=== PATIENT | female | born 1940 | race Caucasian/White ===

== ENCOUNTER 2021-03-11 13:45 | Emergency (ER) | payer MEDICARE, SELFPAY ==
--- NOTE | ~2021-03-11 | US_ITS ---
EXAMINATION: US VENOUS ULTRASOUND WITH DOPPLER LOWER EXTREMITY, LEFT CLINICAL INFORMATION: Chest pain COMPARISON: None TECHNIQUE: Ultrasound of the deep veins is performed from the hip to the calf with compression sonography and color and pulse Doppler assessment. Spectral analysis with color-flow imaging is performed. FINDINGS: There is normal venous compression and respiratory variation and augmented flow. The visualized common femoral vein, superficial femoral vein, profunda femoral vein, popliteal vein, and the trifurcation region shows no evidence of deep venous thrombosis. There is no significant popliteal fossa cyst. If the patient's symptoms persist, followup ultrasound in 5 days 7 days might be of value to exclude proximal propagation from a non-visualized calf vein. US/US venous duplex LE LT IMPRESSION: No DVT demonstrated in the left lower extremity.
--- NOTE | ~2021-03-11 | XR_ITS ---
EXAMINATION: XR KNEE, LEFT CLINICAL INFORMATION: Left knee pain. COMPARISON: None TECHNIQUE: Four views of the left knee. FINDINGS: There is mild loss of medial compartment joint space. The lateral and the patellofemoral compartment joint space is normal. No visible acute fracture, dislocation or subluxation seen. The soft tissues are normal. XR/XR knee LT 4V IMPRESSION: Early degenerative changes medial compartment left knee. No visible acute fracture or dislocation seen.
[2021-03-11 13:49] VITALS: BP 151/76; PULSE 74; RESP 18; TEMP 36.7; O2SAT 98; BMI 23.2
[2021-03-11 16:05] VITALS: BP 149/69; PULSE 66; RESP 18; TEMP 36.8; O2SAT 95
--- NOTE | 2021-03-11 18:16 | ED.GENADULT ---
HPI - General Adult General Chief complaint: Extremity Injury, Lower Stated complaint: leg pain and numbness Time Seen by Provider: 03/11/21 16:15 History of Present Illness HPI narrative: Patient complains of left calf and left knee pain which began last night most of the knee pain is posterior knee, there is no injury there is no shortness of breath no fever, no chest pain Related Data Previous Rx's Medication Instructions Recorded acetaminophen-codeine 1 tab PO Q6H PRN #10 tab 03/11/21 Allergies Allergy/AdvReac Type Severity Reaction Status Date / Time No Known Allergies Allergy Verified 03/11/21 13:53 [No Known Allergies*] Review of Systems Review of Systems: Positive for posterior left knee and calf pain No fever no chills no dizziness no fainting no chest pain no shortness of breath no cough no abdominal pain no skin rash no numbness weakness or tingling Yes all other systems are reviewed and are negative [facility] Past Medical History Source: nursing notes reviewed Medical History (Updated 03/12/21 @ 00:01 by Julia Quiñones) No known health problems Social History Social History Advance Directives: No Advance Directives Information Provided: Yes Physical Exam Vital Signs: Vital Signs: Last Vital Signs Temp 98.2 F 03/11/21 16:05 Pulse 66 03/11/21 16:05 Resp 18 03/11/21 16:05 BP 149/69 H 03/11/21 16:05 Pulse Ox 95 03/11/21 16:05 Body Mass Index 23.2 General appearance no acute distress Head is normocephalic atraumatic The neck is supple The chest is clear to auscultation bilateral with full symmetric equal breath sounds no adventitious sounds The chest wall is nontender there is no evidence of pleuritic pain with breathing The heart no murmur auscultated The abdomen is soft nontender Extremities the left knee has both anterior and posterior tenderness There is tenderness without swelling of the left calf There is no redness there is no warmth there is no wound there is no evidence of skin infection in the left leg It is neurovascular intact distal Other extremities normal Skin no rash Neuro no focal motor or sensory deficit Course Course Course Narrative: Left leg ultrasound did not demonstrate any DVT X-ray of the left knee did demonstrate some osteoarthritis Patient remains stable and comfortable throughout visit and is advised to follow with primary doctor in 1 week if pain persists as she may need repeat ultrasound and can return to the ER any time if any problems Discharge Plan Discharge Clinical Impression: Osteoarthritis of left knee, Left leg pain Patient Disposition: Home, Self-Care Additional Instructions: Ultrasound did not show any blood clot Her physical exam showed good pulse and good circulation in the left leg, there was no wound, no evidence of skin infection, no evidence of superficial phlebitis now If pain continues you may need a repeat ultrasound in a week to 10 days so follow with her doctor Return to the ER any time for any changed or worse condition or any concerns Prescriptions: New acetaminophen-codeine 300-60 mg tablet 1 tab PO Q6H PRN (Reason: pain) Qty: 10 RF: 0 Interventions: ED Discharge Assessment Last Done: 03/11/21 18:43 Discharge Date/Time: 03/11/21 18:44
== END 2021-03-11 18:44 | disposition home or self-care (01) ==
PROVIDERS: Emergency Provider Internal Medicine; PCP Internal Medicine
DX: M17.12 Unilateral primary osteoarthritis, left knee (principal); M25.562 Pain in left knee; R60.0 Localized edema; Z79.899 Other long term (current) drug therapy
CPT/HCPCS: 73564; 93971; 99284

== ENCOUNTER 2022-12-15 12:56 | Outpatient (REF) | payer MEDICARE, SELFPAY ==
[2022-12-15 17:21] LABS: Urine Cytology See Pathology rpt
== END 2022-12-15 12:57 | disposition home or self-care (01) ==
LOC: HO.LAB 12:56
PROVIDERS: PCP Internal Medicine; Visit Provider Nurse Practitioner Family
DX: R31.29 Other microscopic hematuria (principal); F17.210 Nicotine dependence, cigarettes, uncomplicated
CPT/HCPCS: 88112; 99202

== ENCOUNTER 2022-12-20 11:21 | Outpatient (REF) | payer MEDICARE, SELFPAY ==
[2022-12-20 12:39] LABS: Blood Urea Nitrogen 25 mg/dL (9-16); Estimated Glomerular Filt Rate 57
== END 2022-12-20 11:22 | disposition home or self-care (01) ==
LOC: HO.LAB 11:21
PROVIDERS: PCP Internal Medicine; Visit Provider Nurse Practitioner Family
DX: R31.29 Other microscopic hematuria (principal)
CPT/HCPCS: 36415; 82565; 84520

== ENCOUNTER 2023-01-06 10:55 | Outpatient (REF) | payer MEDICARE, SELFPAY ==
--- NOTE | ~2023-01-06 | CT_ITS ---
EXAMINATION: CT ABDOMEN AND PELVIS WITHOUT AND WITH CONTRAST CLINICAL INFORMATION: Microscopic hematuria. COMPARISON: None TECHNIQUE: Noncontrast CT of the abdomen and pelvis is performed followed by split bolus contrast-enhanced images using 85 mL Omnipaque 350 contrast.?Postcontrast imaging is performed during the combined nephrogram and excretion phase. Sagittal and coronal reformatted images were obtained on the technologist's workstation for both the precontrast and postcontrast phases. This CT examination was performed using dose optimization techniques as appropriate, variously including the following: *Automated exposure control *Adjustment of mA and/or kV according to patient size (this includes techniques or standardized protocols for targeted exams where dose is matched to indication/reason for exam; i.e. extremities or head) *Use of iterative reconstruction technique DLP: 578 mGy-cm FINDINGS: LUNG BASES: The visualized lung bases are unremarkable. LIVER, GALLBLADDER, AND BILIARY TREE: The liver is enlarged in size, normal in shape, and attenuation. Scattered punctate hypodensities seen in the right hepatic lobe, probable cysts. No focal hepatic lesion or biliary ductal dilatation is present. The gallbladder is unremarkable with no evidence of radiopaque gallstones, gallbladder wall thickening, or obvious pericholecystic inflammatory changes. PANCREAS: Unremarkable. SPLEEN: Unremarkable. ADRENAL GLANDS: Unremarkable. KIDNEYS AND URETERS: On precontrast CT, there are no radiopaque renal calculi. Post contrast, there are symmetrical cortical nephrograms with slight lobulation. There is a small 5 mm and and less cyst in the upper pole of the right kidney cortex. No additional cyst is seen. There is no enhancing renal mass. There is a small cortical defect lower pole lateral cortex of the left kidney. Left kidney measures 9.2 cm in length and right kidney measures 9.9 cm in length. There is good opacification of the bilateral kidney pelves without intraluminal filling defect. The ureters are not optimally opacified. BLADDER: Bladder is partially distended. There are no radiopaque calculi or bladder wall thickening. GASTROINTESTINAL TRACT: A large amount of stool in the colon without significant distention. The small bowel loops are normal caliber. Appendix is not seen with certainty. Cecum lies in the right pelvis. ABDOMINAL WALL: No significant hernia is appreciated. LYMPH NODES: Normal. VASCULAR: There is atherosclerotic calcification of the abdominal aorta without aneurysmal dilatation. PELVIC VISCERA: The uterus is atrophic. No adnexal mass is seen. OSSEUS STRUCTURES: There are degenerative disc changes throughout the lumbar spine. No aggressive lytic or sclerotic process is seen. There is mild ventral spondylosis. CT/CT urogram IMPRESSION: No radiopaque renal calculi. There are small right renal cortical cysts. No enhancing renal mass or hydronephrosis. Small cortical defect lateral lower pole of the left kidney. Moderate to significant constipation.
[2023-01-06] MEDS: iohexoL 350 MG/ML 100 ML INFUS..BTL IV (12:30)
== END 2023-01-06 10:56 | disposition home or self-care (01) ==
LOC: HO.CT 10:55
PROVIDERS: PCP Internal Medicine; Visit Provider Nurse Practitioner Family
DX: R31.29 Other microscopic hematuria (principal)
CPT/HCPCS: 74178; Q9967

== ENCOUNTER → 2023-01-28 14:11 | Outpatient (BNVA) | payer MEDICARE, SELFPAY | PROVIDERS: PCP Internal Medicine; Visit Provider Urology | DX: R31.29 Other microscopic hematuria (principal) | CPT/HCPCS: 52000; 99212 ==

== ENCOUNTER 2023-08-08 11:20 | Emergency (ER) | payer MEDICARE, SELFPAY ==
--- NOTE | ~2023-08-08 | XR_ITS ---
EXAMINATION: XR CHEST CLINICAL INFORMATION: Cough, rib pain. COMPARISON: X-ray 09/15/2017. TECHNIQUE: 2 views of the chest were obtained. FINDINGS: Stable cardiomediastinal silhouette. No pleural effusion. There is bronchial wall thickening and interstitial prominence in bilateral lower lungs, with some associated hazy opacities. This may reflect inflammatory or infectious process. No dense consolidation is seen. No pneumothorax. Multilevel degenerative changes in the spine. No acute displaced rib fracture is identified. XR/XR chest 2V IMPRESSION: Bronchial wall thickening and interstitial prominence with hazy opacities in bilateral lower lungs, may reflect infectious inflammatory process. No dense consolidation is seen. Consider followup imaging to ensure resolution.
--- NOTE | 2023-08-08 11:23 | ED_ITS ---
HPI - General Adult General Chief complaint: Dyspnea Stated complaint: Diff breathing/Rib pain Time Seen by Provider: 08/08/23 11:27 Source: patient and family (granddaughter) Mode of arrival: ambulatory Limitations: no limitations History of Present Illness HPI narrative: cough for one week now with bilateral rib pain Onset (ago): week(s) Severity: mild Related Data Previous Rx's Medication Instructions Recorded gqxuajegviwgw-VK-[id number] 2.5 20 ml PO Q4H PRN cough #118 mL 08/08/23 mg-5 mg-50 mg/5 mL oral liquid (Robitussin Cough and Cold CF) Allergies Allergy/AdvReac Type Severity Reaction Status Date / Time No Known Allergies Allergy Verified 08/08/23 11:27 [No Known Allergies*] Review of Systems Review of Systems: Yes all other systems are reviewed and are negative Neurologic: Denies Sensory deficit (Neuro) [facility] Past Medical History Medical History Spinal stenosis Psoriasis Microscopic hematuria No known health problems Surgical History History of vein stripping Family History Family History Father Cardiovascular disease Mother Malignant neoplasm of colon Social History Social History Smoked in Last 30 Days: No Use of substances other than those prescribed or required for medical reasons: No Advance Directives: No Advance Directives Information Provided: Yes Physical Exam ED Vital Signs: Vital Signs - 24 hr 08/08/23 11:27 Temperature 97.9 F Pulse Rate 80 Respiratory Rate 18 Blood Pressure 143/72 H Pulse Oximetry 95 Oxygen Delivery Method Room Air BMI result Body Mass Index 21.0 Const General: healthy appearing Nutritional Appearance: average body habitus Orientation/consciousness: oriented to person and patient oriented x3 Limitations: no limitations HENMT Head: Yes normal to inspection Ears: external ears normal General nose exam: Normal external nose present Mouth: Normal oral and palatal mucosa present and oropharynx normal Throat: Yes posterior oropharynx normal Eyes General: appearance normal, both eyes and all related structures Neck Neck: Yes normal visual inspection Chest Chest palpation & inspection: normal inspection of the chest Resp Auscultation: clear to auscultation bilaterally Cardio Jugular venous distension: no JVD Rate: regular rate Rhythm: regular rhythm Heart sounds: S1 normal heart sound present and S2 normal heart sound present GI Inspection: Yes normal to inspection Palpation (GI): Soft to palpation, nontender and No hepatosplenomegaly present Auscultation: normal bowel sounds General: Yes no CVA tenderness Back/Spine/Pelvis Back: no CVA tenderness Skin General skin exam: no rashes or lesions noted Neuro General: oriented to person and patient oriented x3 Cranial nerves: Yes CN's II-XII intact bilaterally Motor exam (neuro): 5/5 motor strength present throughout Sensory Exam: No Sensory deficit (Neuro) Extrem General: Yes normal to inspection Psych Appearance: grossly normal Course Reevaluation(s) Reevaluation #1: smoking cessation: patient counseled for 5 minutes about smoking and how to stop Time: 11:43 Medical Decision Making Differential Diagnosis Differential Diagnoses: The differential diagnosis associated with the presentation includes (pneumonia, RSV, COVID, influenza, bronchitis were all considered) Admission/Observation Consideration of admission/observation: Escalation of care including admission/observation considered (upon arrival patient was considered for admission) Lab Data MDM Lab Attestation statement: I reviewed the patient's lab results. (notable for influenza positive) Labs: Lab Results 08/08/23 Range/Units 11:57 Influenza Type A (PCR) POSITIVE A (Negative) Influenza Type B (PCR) NEGATIVE (Negative) RSV RNA Qual (PCR) NEGATIVE (Negative) SARS-CoV-2 RNA (RT-PCR) NEGATIVE (Negative) Independent Interpretation I performed an independent interpretation of an: Plain X-Ray (question of right lower lobe infiltrate) Radiology Impression Discussion of test interpretation with radiology: I have reviewed the radiologist's reading. (and agree inflammatory process) Independent Historian Clinical information obtained from an independent historian. History obtained from or confirmed by: Other (family: granddaughter) Prescription Management I considered prescription management with: Antibiotic (considered but not evidence of pneumonia and patient has influenza) Chronic Conditions Patient?s care impacted by: Other (smoker and COPD) Discharge Plan Discharge Clinical Impression: Influenza A Patient Disposition: Home, Self-Care Instructions: Influenza (ED) Prescriptions: New Robitussin Cough and Cold CF 2.5-5-50 mg/5 mL liquid 20 ml PO Q4H PRN (Reason: cough) Qty: 118 0RF Referrals: Ronald Rendon MD [Primary Care Provider] -
[2023-08-08 11:27] VITALS: BP 143/72; PULSE 80; RESP 18; TEMP 36.6; O2SAT 95; BMI 21.0
--- NOTE | 2023-08-08 11:57 | PC.NURSE ---
pt a&o4, vss, data capture clerk applied - NSR, pt reports productive cough x 1 week, with headaches and increased fatigue. pt pending XR and covid swab.
[2023-08-08 12:41] LABS: Influenza A PCR POSITIVE (Negative); Influenza B PCR NEGATIVE (Negative); Resp Syncy Virus RNA Qual PCR NEGATIVE (Negative); SARS COV2 PCR INHOUSE NEGATIVE (Negative)
[2023-08-08 14:36] VITALS: BP 114/57; PULSE 76; RESP 18; O2SAT 95
== END 2023-08-08 14:35 | disposition home or self-care (01) ==
PROVIDERS: Emergency Provider Emergency Medicine; PCP Internal Medicine
DX: J10.1 Influenza due to other identified influenza virus with other respiratory manifestations (principal); R06.02 Shortness of breath; R07.81 Pleurodynia; Z20.822 Contact with and (suspected) exposure to COVID-19; Z20.828 Contact with and (suspected) exposure to other viral communicable diseases
CPT/HCPCS: 0241U; 71046; 99283; 99284

== ENCOUNTER 2023-08-24 10:27 | Outpatient (REF) | payer MEDICARE, SELFPAY ==
--- NOTE | ~2023-08-24 | XR_ITS ---
EXAMINATION: XR LUMBOSACRAL SPINE WITH OBLIQUES CLINICAL INFORMATION: Anesthesia of skin COMPARISON: None available. TECHNIQUE: AP, lateral, flexion and extension views of the lumbar spine. 4 views. FINDINGS: Levoscoliosis of the lumbar spine. Advanced degenerative changes in the imaged lower thoracic spine. Bones are diffusely demineralized. Grade 1 retrolisthesis of L1 on L2 with flexion and extension. Advanced multilevel degenerative changes in the lumbar spine most severe at L3-L4, L4-L5 and L5-S1 with loss of disc space height and hypertrophic change. Severe facet arthritis in the mid to lower lumbar spine. XR/XR lumbar spine 4V min IMPRESSION: 1. Grade 1 retrolisthesis of L1 on L2 with flexion and extension. 2. Advanced multilevel degenerative changes in the lumbar spine most severe at L3-L4, L4-L5 and L5-S1. 3. Severe facet arthritis in the mid to lower lumbar spine.
== END 2023-08-24 10:28 | disposition home or self-care (01) ==
LOC: HO.HOSX 10:27
PROVIDERS: PCP Internal Medicine; Visit Provider Neurological Surgery
DX: R20.0 Anesthesia of skin (principal); M54.50 Low back pain, unspecified
CPT/HCPCS: 72110

== ENCOUNTER 2023-08-24 10:27 | Outpatient (AMB) | payer MEDICARE, SELFPAY ==
--- NOTE | 2023-08-24 10:57 | A.SPINEOV_ITS ---
Intake Intake Visit Reasons: low back pain Intake Note: Ms. Brown is here today c/o low back pain radiating down buttock into both legs. MRI done @ [facility]/brought disc. 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 Montaño, Thank you for referring Nevaeh to our office today. She is a pleasant 83-year-old female who comes in today with a chief complaint of bilateral leg and foot numbness. She also endorses some posterior thighs/buttocks numbness, accompanied by some numbness in her groin. She reports no urinary or fecal incontinence. She states that the symptoms began about 3 years ago in 2019 and have progressively worsened since then. She reports that she feels she does not have significant back pain at this time, and reports no issues walking or standing. She further reports that she is able to complete her grocery shopping without issue or reliance upon a shopping cart, and is able to walk to and from her car in the parking lot without any issues or need for a break. She also states she is able to complete all of her ADLs around her home including cooking cleaning. She reports that the only medication that she takes at this time is Tylenol. She does endorse that she has a cortisone injections in the past, and most recently missed an appointment with Dr. Mancera on 08/11/2023 for a cortisone injection of the lumbar spine. PMH: Osteoarthritis, carpal tunnel release on left side. Social hx: Patient does not smoke, reports no substance use. Medications: Tylenol. Allergies: NKDA. Physical exam: Strength is full and symmetric in the upper and lower extremities. Mobility remains intact. Patient is able to ambulate well, rises from seated position without difficulty. Bilateral numbness reported to palpation and fine touch of both feet and ankles. Decreased sensation reported over anterior tibialis to patella. Sensation returns in the lower portion of the thighs, and then decreases again in the posterior thighs/buttocks. Her lower extremities are hypo-reflexive with barely a 1+ Patellar and 1+ Achilles response elicited after numerous attempts. Upper extremity reflexes are 2+ intact. Babinski (-), Clonus (-). Imaging review: MRI of the lumbar spine completed on 06/08/2023 at [facility] shows significant spondylosis, with severe scoliosis, and moderate DDD most prominent at L3-4. Moderate spinal stenosis noted at L3-4, and significant spinal stenosis with central canal narrowing noted at L4-5. Impression: Nevaeh is a 83 year old female who comes in today with a chief complaint of bilateral lower extremity numbness most significant in her feet. She is currently followed by PMR who has completed lumbar spine cortisone injections in the past. She reports that she does not remember if these were helpful for her, but unfortunately she most recently missed her appointment on August 11 to have another round of injections completed. It is evident that she has significant complications in her lumbar spine including a severe curvature and diffuse degenerative changes, most significant at L5 4-5 where severe central canal stenosis can be noted. It does not seem that she has signs/symptoms that are classic for spinal stenosis at this time given the history she reports, which again was stated as little to no low back pain with little to no difficulty ambulating. For these reasons and for the pertinent physical exam findings of hypo-reflexia in her lower extremities we will be sending her for an EMG testing of her bilateral lower extremities to rule out polyneuropathy. She was also sent for an x-ray of the lumbar spine to evaluate for any instability and better view her scoliosis. We will follow up with her after her EMG is completed to discuss further interventions. A surgical decision/discussion will depend upon her results. Thank you for allowing us to care for your patient. The total time spent with this visit with this patient was 60 minutes reviewing history, physical exam, MRI imaging review, and implementation of treatment plan or further diagnostic testing. Ashwin Carr MD,PhD [facility] Orders: Orders NE electromyogram (EMG) Today R20.0 - Anesthesia of skin XR lumbar spine 4V min Today R20.0 - Anesthesia of skin Coding Level of Care Code New Pt Level 5 (20311) Diagnoses Bilateral leg numbness R20.0
== END 2023-08-24 11:45 | disposition home or self-care (01) ==
PROVIDERS: PCP Internal Medicine; Referring Provider Physical Medicine & Rehabilitation; Visit Provider Neurological Surgery
DX: R20.0 Anesthesia of skin (principal)
CPT/HCPCS: 99205

== ENCOUNTER 2023-09-07 10:04 | Outpatient (REF) | payer MEDICARE, SELFPAY ==
--- NOTE | 2023-09-07 10:07 | EMG_ITS ---
Please see scanned EMG / Nerve Conduction Report. MTDD
== END 2023-09-07 10:05 | disposition home or self-care (01) ==
LOC: HO.NEURO 10:04
PROVIDERS: PCP Internal Medicine; Visit Provider Physician Assistant
DX: R20.0 Anesthesia of skin (principal)
CPT/HCPCS: 95885; 95913

== ENCOUNTER 2023-11-10 12:59 | Outpatient (AMB) | payer MEDICARE, SELFPAY ==
[2023-11-10 13:10] VITALS: BP 90/60; PULSE 18; BMI 21.8
--- NOTE | 2023-11-10 13:10 | MHC.OFFVIS ---
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 Pt reports tingling on her both hands and feet. Bilateral hands numbness is not bad as her feet. It started about 2 months ago. Numbness of feet started about 4-5 years ago. She feels like plastic coating on her legs and feet, funny sensation. Denies pain but she occasionally uses tylenol or ibuprofen for back pain. 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 and had hx of varicose vein. Denies weakness on her legs but can lose balance once in a while. EMG report reviewed. 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 Normal EMG of the L5-S1 innervated muscle bilaterally. She had back problems. MRI reports multilevel degenerative changes of the lumbar spine. There is severe spinal canal stenois and severe right neural foramnimal naarowing at L4-5. Severe left neural foraminal narrowing at L5-S1. A disc protrusion at L1-L2 crowds the traversing right L2 nerve roots. She had neuro surgeon consultation and was told that no surgery needed. Has hx of osteoarthritis, psoriasis. She smokes 7 cigarets a day. [facility] Medical History Spinal stenosis Psoriasis Microscopic hematuria No known health problems Surgical History History of vein stripping Family History Father Cardiovascular disease Mother Malignant neoplasm of colon Physical Exam Vital Signs: Last Vital Signs Pulse 18 L 11/10/23 13:10 BP 90/60 11/10/23 13:10 BMI result Body Mass Index 21.8 Const General: cooperative Nutritional Appearance: average body habitus Orientation/consciousness: patient oriented x3 Neck Neck: Yes full ROM and Yes supple Resp Effort & Inspection: normal respiratory effort and able to speak in complete sentences Neuro General: patient oriented x3 Cranial nerves: Yes CN's II-XII intact bilaterally Cognition (Neuro): normal cognition Gait exam (Neuro): Antalgic gait present Motor exam (neuro): 5/5 motor strength present throughout and Pronator motor function not present Psych Appearance: grossly normal Affect: normal affect Attitude: cooperative Assessment & Plan Assessment & Plan (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 Advised patient reduce smoking. Pt plans to have consultation for smoke cessation. Orders: Orders Vitamin B12 and Folate 11/10/23 G60.8 - Other hereditary and idiopathic neuropathies Erythrocyte Sedimentation Rate 11/10/23 G60.8 - Other hereditary and idiopathic neuropathies HU Antibody 11/10/23 G60.8 - Other hereditary and idiopathic neuropathies Coding Level of Care Code New Pt Level 4 (75212) Diagnoses Sensory peripheral neuropathy G60.8 Bilateral leg numbness R20.0
== END 2023-11-10 13:56 | disposition home or self-care (01) ==
PROVIDERS: PCP Internal Medicine; Visit Provider Nurse Practitioner Family
DX: G60.8 Other hereditary and idiopathic neuropathies (principal); R20.0 Anesthesia of skin
CPT/HCPCS: 99204

== ENCOUNTER → 2023-11-10 12:59 | Outpatient (BNVA) | payer MEDICARE, SELFPAY | PROVIDERS: PCP Internal Medicine; Visit Provider Nurse Practitioner Family | DX: G60.8 Other hereditary and idiopathic neuropathies (principal); R20.0 Anesthesia of skin | CPT/HCPCS: 99202 ==

== ENCOUNTER 2024-01-30 14:20 | Outpatient (AMB) | payer MEDICARE, SELFPAY ==
--- NOTE | 2024-01-30 14:54 | A.OFFVIS_ITS ---
Intake Intake Visit Reasons: 1y follow up Intake Note: Patient presents for follow up microscopic hematuria Urology Medications: none Blood Thinner:none Operator Catalyst Concentration Required: No Accompanied by: Self / Same As Patient Allergies No Known Allergies [No Known Allergies*] Allergy (Verified 01/30/24 15:38) Medication List - Last Reconciled 01/30/24 by RAYMUNDO Sanchez estradiol 0.01%(0.1mg/gram) (Estrace) 1 g vaginal 3XW 30 days [id number] 2.5-5-50 mg/5 mL (Robitussin Cough and Cold CF) 20 mL PO Q4H PRN HPI HPI Comments History of Present Illness Details Nevaeh is a pleasant 82-year-old female patient of Dr. Rendon. She presents to the office today for a follow up of her microscopic hematuria in the setting of nicotine dependence. Of note, patient was seen approximately 1 year ago at which time she underwent an office cystoscopy that noted NAD however urethral caruncle noted. In discussion with the patient today she reports to be doing and feeling well. She denies any bothersome urinary issues or concerns. She does continue with nicotine dependence and reports to be smoking approximately 1 pack of cigarettes every 4-5 days. When asked she denies flank pain, hematuria, urinary urgency, urinary frequency, fever, and or chills. She does however report stress incontinence however very infrequent and is not bothersome to her. In office urinalysis results reviewed with the patient today. Microscopic hematuria noted. Would like to send for urine cytology however sample is not an adequate amount. She otherwise offers no other issues or concerns at this time. Microscopic Hematuria Smoking history 20 year pack per day - smokes 1/4 pack daily since age 16 [address] exposure is headrest Cytology - 12/30 NAD Imaging - 12/30 CT scan NAD PFSH Medical History Spinal stenosis Psoriasis Microscopic hematuria No known health problems Surgical History History of vein stripping Family History Father Cardiovascular disease Mother Malignant neoplasm of colon Review of Systems Const All systems reviewed & are unremarkable except as noted in HPI and below Reports as per HPI Eyes Reports no additional complaints ENT Reports no additional complaints Card Reports no additional complaints Resp Reports no additional complaints GI Reports no additional complaints Reports as per HPI Musc Reports no additional complaints Neuro Reports as per HPI Psych Reports no additional complaints Endo Reports no additional complaints Mayur/Lymph Reports no additional complaints Aller/Immun Reports no additional complaints Physical Exam Const General: cooperative, healthy appearing, comfortable, no acute distress, well developed, alert and awake Nutritional Appearance: thin Orientation/consciousness: patient oriented x3 Limitations: no limitations HEENT Head: Yes normal to inspection, Yes normocephalic and Yes atraumatic Eyes General: appearance normal, both eyes and all related structures Neck Neck: Yes normal visual inspection and Yes trachea midline Chest Chest palpation & inspection: normal inspection of the chest Resp Effort & Inspection: normal respiratory effort and able to speak in complete sentences Cardio Rate: regular rate GI Inspection: Yes normal to inspection General: Yes no CVA tenderness Back/Spine/Pelvis Back: no CVA tenderness Skin General skin exam: no rashes or lesions noted Neuro General: patient oriented x3 Psych Appearance: grossly normal and well kempt Mental Status: mental status grossly normal Speech and movement: Normal speech and movement present and Clear speech present Affect: normal affect Attitude: cooperative Thought process: Normal thought process present Thought content: Normal thought content present Insight: Fair insight present (Psych) Judgement: Fair judgement present (Psych) Results AMB Urinalysis, Automated UA Leukoctes 0 Paresh/uL Last Edit by [employer] on 01/30/24 15:13 UA Nitrite Negative Last Edit by [employer] on 01/30/24 15:13 UA Urobilinogen 0.2 mg/dL Last Edit by [employer] on 01/30/24 15:13 UA Protein 0 mg/dL Last Edit by [employer] on 01/30/24 15:13 UA pH 5.5 Last Edit by [employer] on 01/30/24 15:13 UA Blood 25 Henri/uL Last Edit by [employer] on 01/30/24 15:13 UA Specific [place] 1.015 Last Edit by [employer] on 01/30/24 15:13 UA Ketone Negative Last Edit by [employer] on 01/30/24 15:13 UA Bilirubin 0 mg/dL Last Edit by Lorenzo Marcelino on 01/30/24 15:13 UA Glucose 0 mg/dL Last Edit by Lorenzo Marcelino on 01/30/24 15:13 Results Reviewed Results Reviewed: Laboratory Last Values Urine pH (Auto) 5.5 01/30/24 14:59 Specific [place] (Auto) 1.015 01/30/24 14:59 Urine Protein (Auto) 0 mg/dL 01/30/24 14:59 Glucose (UA)(Auto) 0 mg/dL 01/30/24 14:59 Urine Ketones (Auto) Negative 01/30/24 14:59 Urine Blood (Auto) 25 Henri/uL 01/30/24 14:59 Urine Nitrite (Auto) Negative 01/30/24 14:59 Urine Bilirubin (Auto) 0 mg/dL 01/30/24 14:59 Urine Urobilinogen (Auto) 0.2 mg/dL 01/30/24 14:59 Leukocyte Esterase (Auto) 0 Paresh/uL 01/30/24 14:59 Assessment & Plan Assessment & Plan (1) Microscopic hematuria: Code(s): R31.29 - Other microscopic hematuria (2) Nicotine dependence: Code(s): F17.200 - Nicotine dependence, unspecified, uncomplicated Plan In office urinalysis results reviewed with the patient today; as noted above; unable to send urine for urine cytology as not a sufficient amount given in office of urine; will send urine cytology order to lab. Discussed at length potential causes for microscopic hematuria. Discussed, educated, and stressed the importance of limiting/quitting nicotine dependence for overall health and well-being. Start Estrace cream as discussed and prescribed. Patient currently denies any bothersome urinary issues or concerns. Discussed pelvic floor therapy in the setting of stress urinary incontinence; however patient declines at this time. Discussed, educated, and stressed the importance of drinking water daily. Follow-up in 6 months; or sooner with any issues, concerns, and or questions. Orders: Orders AMB Urinalysis Automated Today Z13.9 - Encounter for screening, unspecified Urine Cytology Today F17.200 - Nicotine dependence, unspecified, uncomplicated, R31.29 - Other microscopic hematuria Medications: New estradiol 0.01%(0.1mg/gram) (Estrace) apply a pea sized amount to the uretera three times per week. 1 g vaginal 3XW 42.5 grams 3RF 30 days Patient Instructions: The patient had an opportunity to ask questions regarding the treatment plan. All questions were answered. Physical exam, labs, and imaging were discussed and reviewed in detail. As well as risks, benefits, and discussion of treatment choices. No major barriers to understanding were identified. The patient expressed understanding and agreement with the above treatment plan. The patient was made aware they should contact our office by phone for worsening of their current condition, the appearance of new symptoms, or with any questions or concerns. Compliance is encouraged with any medications and follow up testing that is ordered. It is a privilege to be allowed the opportunity to participate in? your urological care.? Again, if you have any questions or concerns If you have any questions or concerns please do not hesitate to contact me. The office is [phone]. This note is constructed using voice recognition software. While every effort has been made to ensure accuracy potash flaker errors may have been included. Yours sincerely, RAYMUNDO Sanchez Coding Level of Care Code Est Pt Level 4 (71086) Diagnoses Microscopic hematuria R31.29 Nicotine dependence F17.200
== END 2024-01-30 15:27 | disposition home or self-care (01) ==
PROVIDERS: Visit Provider Nurse Practitioner Family
DX: R31.29 Other microscopic hematuria (principal); F17.200 Nicotine dependence, unspecified, uncomplicated; Z13.9 Encounter for screening, unspecified
CPT/HCPCS: 99214

== ENCOUNTER → 2024-01-30 14:20 | Outpatient (BNVA) | payer MEDICARE, SELFPAY | PROVIDERS: Visit Provider Nurse Practitioner Family | DX: R31.29 Other microscopic hematuria (principal); F17.210 Nicotine dependence, cigarettes, uncomplicated | CPT/HCPCS: 81003; 99212 ==

== ENCOUNTER 2024-02-03 13:03 | Outpatient (AMB) | payer MEDICARE, SELFPAY ==
--- NOTE | 2024-02-03 13:05 | MHC.OFFVIS ---
Intake Vital Signs 02/03/24 13:17 Height 5 ft 2 in Weight 121 lb 8 oz BMI 22.2 BP 115/72 Blood Pressure Location Lt brachial Position Sitting Pulse 79 Pulse Source Pulse Oximeter Pulse Oximetry (%) 97 Oxygen Delivery Method Room Air Intake Visit Reasons: follow up/ Confirmed Intake Note: Patient presents for f/U. Still feeling numbness on both feet and feels a sensation on both arms. Allergies No Known Allergies [No Known Allergies*] Allergy (Verified 02/03/24 13:13) HPI HPI Comments History of Present Illness Details 83 y/o female patient presents for follow up of neuropathy. Pt reports she started taking Nirvive with Alpha lipoic acid 300 mg in it, a week ago. She still has tingling on her both hands and feet. Bilateral hands numbness is not bad as her feet. Pt thinks tingling on her feet has been a little better. She tried gabapentin, and but it did not help for numbness but also caused groggy and felt drunk. She stopped smoking 2 weeks ago. 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 and had hx of varicose vein. Denies weakness on her legs but can lose balance once in a while. EMG report reviewed. 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 Normal EMG of the L5-S1 innervated muscle bilaterally. Lab result reviewed, B12, ESR result was WNL and Anti Hu was negative. She had back problems. MRI reports multilevel degenerative changes of the lumbar spine. There is severe spinal canal stenois and severe right neural foramnimal narrowing at L4-5. Severe left neural foraminal narrowing at L5-S1. A disc protrusion at L1-L2 crowds the traversing right L2 nerve roots. She had neuro surgeon consultation and was told that no surgery needed. Has hx of osteoarthritis, psoriasis. [facility] Medical History Spinal stenosis Psoriasis Microscopic hematuria No known health problems Surgical History History of vein stripping Family History Father Cardiovascular disease Mother Malignant neoplasm of colon Social History (Updated 02/03/24 @ 13:16 by Chanell Medrano CMA) Housing: Apartment Alcohol intake: former Comment: Ocassionally Patient Tobacco Use Status: Former Tobacco user Years Smoked: 20 Review of Systems Const All systems reviewed & are unremarkable except as noted in HPI and below Physical Exam Vital Signs: Last Vital Signs Pulse 79 02/03/24 13:17 BP 115/72 02/03/24 13:17 Pulse Ox 97 02/03/24 13:17 Oxygen Delivery Method Room Air 02/03/24 13:17 BMI result Body Mass Index 22.2 Const General: cooperative Nutritional Appearance: average body habitus Orientation/consciousness: patient oriented x3 Neck Neck: Yes full ROM and Yes supple Resp Effort & Inspection: normal respiratory effort and able to speak in complete sentences Neuro General: patient oriented x3 Cranial nerves: Yes CN's II-XII intact bilaterally Cognition (Neuro): normal cognition Gait exam (Neuro): Antalgic gait present Motor exam (neuro): 5/5 motor strength present throughout and Pronator motor function not present Psych Appearance: grossly normal Affect: normal affect Attitude: cooperative Assessment & Plan Assessment & Plan (1) Sensory peripheral neuropathy: Code(s): G60.8 - Other hereditary and idiopathic neuropathies (2) Bilateral leg numbness: Code(s): R20.0 - Anesthesia of skin Plan Advised patient to continue to take Nirvive with alpha lipoic acid 600 mg in it. Coding Level of Care Code Est Pt Level 3 (43770) Diagnoses Sensory peripheral neuropathy G60.8 Bilateral leg numbness R20.0
[2024-02-03 13:17] VITALS: BP 115/72; PULSE 79; O2SAT 97; BMI 22.2
== END 2024-02-03 13:33 | disposition home or self-care (01) ==
PROVIDERS: PCP Internal Medicine; Visit Provider Nurse Practitioner Family
DX: G60.8 Other hereditary and idiopathic neuropathies (principal); R20.0 Anesthesia of skin
CPT/HCPCS: 99213

== ENCOUNTER → 2024-02-03 13:03 | Outpatient (BNVA) | payer MEDICARE, SELFPAY | PROVIDERS: PCP Internal Medicine; Visit Provider Nurse Practitioner Family | DX: G60.8 Other hereditary and idiopathic neuropathies (principal); R20.0 Anesthesia of skin | CPT/HCPCS: 99212 ==

== ENCOUNTER 2024-07-30 10:31 | Outpatient (AMB) | payer MEDICARE, SELFPAY ==
--- NOTE | 2024-07-30 10:42 | A.OFFVIS_ITS ---
Intake Visit Reasons: 6m follow up Intake Note: Patient presents for follow up microscopic hematuria Urology Medications: Estrace Cream Blood Thinner:none Tieing Machine Operator Required: No Accompanied by: Self / Same As Patient Allergies No Known Allergies [No Known Allergies*] Allergy (Verified 07/30/24 11:03) Medication List - Last Reconciled 07/30/24 by RAYMUNDO Sanchez estradiol 0.01%(0.1mg/gram) (Estrace) 1 g vaginal 3XW 30 days HPI Comments Details: Nevaeh is a pleasant 84-year-old female patient of Dr. Rendon. She presents to the office today for a follow up of her microscopic hematuria in the setting of nicotine dependence. In discussion with the patient today she reports to be doing and feeling well. She reports since her last office visit here in January she has underwent back surgery with Dr. Quiroga and has been recovering well. She currently denies any bothersome urinary issues or concerns. Previous CT 01/27 noted no calculi. There are 5 mm and less cysts in the upper pole of the right kidney cortex. No additional cysts seen. There is no enhancing renal mass. The bladder is partially distended. There are no radiopaque calculi or bladder wall thickening. Patient underwent an office cystoscopy 01/[address] Goddard that noted NAD however urethral caruncle noted. She does continue with nicotine dependence and reports to be smoking approximately 1 pack of cigarettes every 4-5 days. When asked she denies flank pain, hematuria, urinary urgency, urinary frequency, fever, and or chills. She does however report stress incontinence however very infrequent and is not bothersome to her. In office urinalysis results reviewed with the patient today. Trace microscopic hematuria noted and proteinuria. When asked she reports compliance with Estrace cream as prescribed. She otherwise offers no other issues or concerns at this time. Microscopic Hematuria Smoking history 20 year pack per day - smokes 1/4 pack daily since age 16 [address] exposure is headrest Cytology - 12/30 NAD Imaging - 2/23 CT scan NAD [facility] Medical History Spinal stenosis Psoriasis Microscopic hematuria No known health problems Surgical History History of vein stripping Family History Father Cardiovascular disease Mother Malignant neoplasm of colon Social History Housing: Apartment Alcohol intake: former Comment: Ocassionally Patient Tobacco Use Status: Former Tobacco user Years Smoked: 20 Review of Systems Const All systems reviewed & are unremarkable except as noted in HPI and below Reports as per HPI Eyes Reports no additional complaints ENT Reports no additional complaints Card Reports no additional complaints Resp Reports no additional complaints GI Reports no additional complaints Reports as per HPI Musc Reports no additional complaints Neuro Reports as per HPI Psych Reports no additional complaints Endo Reports no additional complaints Mayur/Lymph Reports no additional complaints Aller/Immun Reports no additional complaints Physical Exam Const General: cooperative, healthy appearing, comfortable, no acute distress, well developed, alert and awake Nutritional Appearance: thin Orientation/consciousness: patient oriented x3 Limitations: no limitations HEENT Head: Yes normal to inspection, Yes normocephalic and Yes atraumatic Eyes General: appearance normal, both eyes and all related structures Neck Neck: Yes normal visual inspection and Yes trachea midline Chest Chest palpation & inspection: normal inspection of the chest Resp Effort & Inspection: normal respiratory effort and able to speak in complete sentences Cardio Rate: regular rate GI Inspection: Yes normal to inspection General: Yes no CVA tenderness Back/Spine/Pelvis Back: no CVA tenderness Skin General skin exam: no rashes or lesions noted Neuro General: patient oriented x3 Psych Appearance: grossly normal and well kempt Mental Status: mental status grossly normal Speech and movement: Normal speech and movement present and Clear speech present Affect: normal affect Attitude: cooperative Thought process: Normal thought process present Thought content: Normal thought content present Insight: Fair insight present (Psych) Judgement: Fair judgement present (Psych) Results AMB Urinalysis, Automated UA Leukoctes 0 Paresh/uL Last Edit by Lorenzo Marcelino on 07/30/24 10:54 UA Nitrite Last Edit by Lorenzo Marcelino on 07/30/24 10:54 UA Urobilinogen 0.2 mg/dL Last Edit by Lorenzo Lucylela on 07/30/24 10:54 UA Protein 100 mg/dL Last Edit by Lorenzo Marcelino on 07/30/24 10:54 UA pH 6.0 Last Edit by Lorenzo Marcelino on 07/30/24 10:54 UA Blood 10 Henri/uL Last Edit by Lorenzo Marcelino on 07/30/24 10:54 UA Specific [place] 1.015 Last Edit by Lorenzo Marcelino on 07/30/24 10:54 UA Ketone Last Edit by Lorenzo Marcelino on 07/30/24 10:54 UA Bilirubin 0 mg/dL Last Edit by Lorenzo Marcelino on 07/30/24 10:54 UA Glucose 0 mg/dL Last Edit by Lorenzo Marcelino on 07/30/24 10:54 Results Reviewed Results Reviewed: Laboratory Last Values Urine pH (Auto) 6.0 07/30/24 10:47 Specific [place] (Auto) 1.015 07/30/24 10:47 Urine Protein (Auto) 100 mg/dL 07/30/24 10:47 Glucose (UA)(Auto) 0 mg/dL 07/30/24 10:47 Urine Blood (Auto) 10 Henri/uL 07/30/24 10:47 Urine Bilirubin (Auto) 0 mg/dL 07/30/24 10:47 Urine Urobilinogen (Auto) 0.2 mg/dL 07/30/24 10:47 Leukocyte Esterase (Auto) 0 Paresh/uL 07/30/24 10:47 Assessment & Plan Assessment & Plan (1) Microscopic hematuria: Code(s): R31.29 - Other microscopic hematuria Category: Medical (2) Nicotine dependence: Code(s): F17.200 - Nicotine dependence, unspecified, uncomplicated Category: Medical (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 Discussed referral to Nephrology for 2+ proteinuria on urinalysis. Discussed at length potential causes for microscopic hematuria. Discussed repeat cystoscopy in the near future given patient with persistent microscopic hematuria in the setting of nicotine dependence. Discussed, educated, and stressed the importance of limiting/quitting nicotine dependence for overall health and well-being. Continue Estrace cream as discussed and prescribed. Patient currently denies any bothersome urinary issues or concerns. Discussed, educated, and stressed the importance of drinking water daily. Follow-up in 6 months; or sooner with any issues, concerns, and or questions. Orders: Orders AMB Urinalysis Automated Today Z13.9 - Encounter for screening, unspecified Referrals Nephrology Referral R80.9 - Proteinuria, unspecified Patient Instructions: The patient had an opportunity to ask questions regarding the treatment plan. All questions were answered. Physical exam, labs, and imaging were discussed and reviewed in detail. As well as risks, benefits, and discussion of treatment choices. No major barriers to understanding were identified. The patient expressed understanding and agreement with the above treatment plan. The patient was made aware they should contact our office by phone for worsening of their current condition, the appearance of new symptoms, or with any questions or concerns. Compliance is encouraged with any medications and follow up testing that is ordered. It is a privilege to be allowed the opportunity to participate in? your urological care.? Again, if you have any questions or concerns If you have any questions or concerns please do not hesitate to contact me. The office is [phone]. This note is constructed using voice recognition software. While every effort has been made to ensure accuracy toe former stitchdowns errors may have been included. 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
== END 2024-07-30 11:05 | disposition home or self-care (01) ==
LOC: HO.HUSH 10:31
PROVIDERS: PCP Internal Medicine; Visit Provider Nurse Practitioner Family
DX: R31.29 Other microscopic hematuria (principal); F17.200 Nicotine dependence, unspecified, uncomplicated; N36.2 Urethral caruncle; Z13.9 Encounter for screening, unspecified
CPT/HCPCS: 99213; G2211

== ENCOUNTER 2024-07-30 10:31 | Outpatient (REF) | payer MEDICARE, SELFPAY ==
[2024-07-30 17:04] LABS: Urine Cytology See Pathology rpt
== END 2024-07-30 10:32 | disposition home or self-care (01) ==
LOC: HO.LNP 10:31
PROVIDERS: PCP Internal Medicine; Visit Provider Nurse Practitioner Family
DX: R31.29 Other microscopic hematuria (principal); F17.200 Nicotine dependence, unspecified, uncomplicated; N36.2 Urethral caruncle; R80.9 Proteinuria, unspecified
CPT/HCPCS: 81003; 88112; 99212

== ENCOUNTER 2024-08-08 14:22 | Outpatient (AMB) | payer MEDICARE, SELFPAY ==
[2024-08-08 14:28] VITALS: BP 110/70; PULSE 102; O2SAT 99; BMI 21.6
--- NOTE | 2024-08-08 14:28 | HO.NEPHOV ---
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 She had dipstick positive proteinuria. Recent creatinine was 0.9 mg/dL back in 2022. She had microscopic hematuria. She underwent cystoscopy which was unremarkable. [facility] Medical History (Updated 07/30/24 @ 11:24 by LISETTE Sanchez) Spinal stenosis Psoriasis Microscopic hematuria No known health problems Surgical History (Updated 08/08/24 @ 14:32 by Marlena Murguia MA) History of back surgery History of vein stripping Family History Father Cardiovascular disease Mother Malignant neoplasm of colon Social History Housing: Apartment Alcohol intake: former Comment: Ocassionally Patient Tobacco Use Status: Former Tobacco user Years Smoked: 20 Review of Systems Const Denies fever(s) and Denies weight loss Card Denies chest pain Resp Denies cough and Denies hemoptysis GI Denies abdominal pain, Denies diarrhea and Denies nausea Musc Denies back pain Neuro Denies focal weakness Physical Exam Vital Signs: Last Vital Signs Pulse 102 H 08/08/24 14:28 BP 110/70 08/08/24 14:28 Pulse Ox 99 08/08/24 14:28 Oxygen Delivery Method Room Air 08/08/24 14:28 BMI result Body Mass Index 21.6 Awake. Comfortable. Neck is supple. Mucosa moist. Lungs air entry equal Heart S1-S2 heard no gallop. Abdomen soft. Extremities no edema. No involuntary movements. No myoclonus. Results Reviewed Nephrology Results: Sodium 139 mmol/L (135-145) 08/08/24 Potassium 4.4 mmol/L (3.3-5.1) 08/08/24 Chloride 104 mmol/L (96-108) 08/08/24 Carbon Dioxide 26 mmol/L (22-29) 08/08/24 BUN 26 mg/dL (9-16) H 08/08/24 Creatinine 1.12 mg/dL (0.5-1.4) 08/08/24 Calcium 9.7 mg/dL (8.4-10.2) 08/08/24 Urine Creatinine 255.28 mg/dL 08/08/24 Assessment & Plan Assessment & Plan (1) Proteinuria: Code(s): R80.9 - Proteinuria, unspecified Category: Medical Plan Pleasant 84-year-old woman with mild proteinuria by dipstick. She had microscopic hematuria and workup has been negative including cystoscopy. Renal function has been stable with a creatinine 0.8 mg/dL. First step is to quantify the proteinuria. If she has a significant proteinuria then we will proceed with further workup. In the meantime encouraged her to stay on low-sodium diet. And not added any medication at this time and reassured her. Orders: Orders Basic Metabolic Panel 08/08/24 R80.9 - Proteinuria, unspecified Total Protein Urine Random 08/08/24 R80.9 - Proteinuria, unspecified Creatinine Urine 08/08/24 R80.9 - Proteinuria, unspecified Coding Level of Care Code New Pt Level 4 (30942) Diagnoses Proteinuria R80.9
== END 2024-08-08 15:05 | disposition home or self-care (01) ==
LOC: HO.HKAM 14:22
PROVIDERS: PCP Internal Medicine; Visit Provider Internal Medicine Hypertension Specialist
DX: R80.9 Proteinuria, unspecified (principal)
CPT/HCPCS: 99204

== ENCOUNTER → 2024-08-08 14:22 | Outpatient (BNVA) | payer MEDICARE, SELFPAY | PROVIDERS: PCP Internal Medicine; Visit Provider Internal Medicine Hypertension Specialist ==

== ENCOUNTER 2024-08-08 14:59 | Outpatient (REF) | payer MEDICARE, SELFPAY ==
[2024-08-08 16:38] LABS: Anion Gap 13 (12-20); Blood Urea Nitrogen 26 mg/dL (9-16); Calcium 9.7 mg/dL (8.4-10.2); Carbon Dioxide 26 mmol/L (22-29); Chloride 104 mmol/L (96-108); Estimated Glomerular Filt Rate 46; Glucose Random 133 mg/dL (60-115); Potassium 4.4 mmol/L (3.3-5.1); Sodium 139 mmol/L (135-145)
[2024-08-08 16:57] LABS: Folate 11.2 ng/mL (> or = 4.0); Vitamin B12 1013 pg/mL (200-900)
[2024-08-08 17:11] LABS: Erythrocyte Sedimentation Rate 18 MM/HR (0-20)
[2024-08-08 17:27] LABS: Creatinine Urine 255.28 mg/dL; Total Protein Urine Random 75 mg/dL (<12)
[2024-08-14 22:59] LABS: Hu Antibody Screen, IFA Serum NEGATIVE (NEGATIVE)
== END 2024-08-08 15:00 | disposition home or self-care (01) ==
LOC: HO.HHCL 14:59
PROVIDERS: Referring Provider Nurse Practitioner Family; Visit Provider Internal Medicine Hypertension Specialist
DX: G60.8 Other hereditary and idiopathic neuropathies (principal); R80.9 Proteinuria, unspecified
CPT/HCPCS: 36415; 80048; 82570; 82607; 82746; 84156; 84181; 85652; 86255; 86256; 99202

== ENCOUNTER 2024-09-17 16:10 | Outpatient (AMB) | payer MEDICARE, SELFPAY ==
[2024-09-17 16:11] VITALS: BP 146/58; PULSE 89; O2SAT 96; BMI 21.8
--- NOTE | 2024-09-17 16:11 | HO.NEPHOV_ITS ---
Vital Signs 09/17/24 16:11 09/17/24 16:21 Height 5 ft 2 in Weight 119 lb BMI 21.8 BP 146/58 H 140/60 H Blood Pressure Location Lt brachial Lt brachial Position Sitting Sitting Pulse 89 Pulse Source Pulse Oximeter Pulse Oximetry (%) 96 Oxygen Delivery Method Room Air Intake Visit Reasons: Proteinuria/ LVM Medicine Tech Required: No Accompanied by: Self / Same As Patient Allergies No Known Allergies [No Known Allergies*] Allergy (Verified 09/17/24 16:13) Medication List - Last Reconciled 09/17/24 by Gurinder Danielson MD acetaminophen (Tylenol) 325 mg PO QID PRN estradiol 0.01%(0.1mg/gram) (Estrace) 1 g vaginal 3XW 30 days ibuprofen 200 mg PO Q6H PRN HPI Comments Details: Nevaeh is a pleasant 84-year-old woman who has been referred for evaluation proteinuria. She had dipstick positive proteinuria. Recent creatinine was 0.9 mg/dL back in 2022. She had microscopic hematuria. She underwent cystoscopy which was unremarkable. 09/17/24 [facility] Medical History (Updated 07/30/24 @ 11:24 by Christelle Anguiano [facility]) Spinal stenosis Psoriasis Microscopic hematuria No known health problems Surgical History History of back surgery History of vein stripping Family History Father Cardiovascular disease Mother Malignant neoplasm of colon Social History Housing: Apartment Alcohol intake: former Comment: Ocassionally Patient Tobacco Use Status: Former Tobacco user Years Smoked: 20 Physical Exam Vital Signs: Last Vital Signs Pulse 89 09/17/24 16:11 BP 146/58 H 09/17/24 16:11 Pulse Ox 96 09/17/24 16:11 Oxygen Delivery Method Room Air 09/17/24 16:11 BMI result Body Mass Index 21.8 Results Reviewed Nephrology Results: Sodium 139 mmol/L (135-145) 08/08/24 Potassium 4.4 mmol/L (3.3-5.1) 08/08/24 Chloride 104 mmol/L (96-108) 08/08/24 Carbon Dioxide 26 mmol/L (22-29) 08/08/24 BUN 26 mg/dL (9-16) H 08/08/24 Creatinine 1.12 mg/dL (0.5-1.4) 08/08/24 Calcium 9.7 mg/dL (8.4-10.2) 08/08/24 Urine Creatinine 255.28 mg/dL 08/08/24 Assessment & Plan Assessment & Plan (1) Proteinuria: Code(s): R80.9 - Proteinuria, unspecified Category: Medical Plan Pleasant 84-year-old woman with mild proteinuria by dipstick. She had microscopic hematuria and workup has been negative including cystoscopy. Renal function has been stable with a creatinine 0.8 mg/dL. Urien Pro: Cr 290 Non nephrotic Will recheck in 3 months with serologies meantime encouraged her to stay on low-sodium diet. Have not added any medication at this time Orders: Orders Creatinine 3 Months R80.9 - Proteinuria, unspecified Total Protein Urine Random 3 Months R80.9 - Proteinuria, unspecified Creatinine Urine 3 Months R80.9 - Proteinuria, unspecified Blood Urea Nitrogen 3 Months R80.9 - Proteinuria, unspecified UA and rflx microscopic 3 Months R80.9 - Proteinuria, unspecified Protein Electrophoresis, Serum 3 Months R80.9 - Proteinuria, unspecified Complement C3 3 Months R80.9 - Proteinuria, unspecified Complement C4 3 Months R80.9 - Proteinuria, unspecified SHON Reflex Titer and Pattern 3 Months R80.9 - Proteinuria, unspecified ANCA Vasculitides 3 Months R80.9 - Proteinuria, unspecified Coding Level of Care Code Est Pt Level 4 (12342) Diagnoses Proteinuria R80.9
[2024-09-17 16:21] VITALS: BP 140/60
== END 2024-09-17 16:27 | disposition home or self-care (01) ==
PROVIDERS: PCP Internal Medicine; Visit Provider Internal Medicine Hypertension Specialist
DX: R80.9 Proteinuria, unspecified (principal)
CPT/HCPCS: 99214

== ENCOUNTER → 2024-09-17 16:10 | Outpatient (BNVA) | payer MEDICARE, SELFPAY | PROVIDERS: PCP Internal Medicine; Visit Provider Internal Medicine Hypertension Specialist | DX: R80.9 Proteinuria, unspecified (principal) | CPT/HCPCS: 99212 ==

== ENCOUNTER 2024-11-05 09:58 | Outpatient (AMB) | payer MEDICARE, SELFPAY ==
--- NOTE | 2024-11-05 10:04 | MHC.OFFVIS ---
Vital Signs 11/05/24 10:08 Height 5 ft 2 in Weight 117 lb BMI 21.4 BP 108/66 Blood Pressure Location Rt brachial Position Sitting Pulse 81 Pulse Source Pulse Oximeter Pulse Oximetry (%) 97 Oxygen Delivery Method Room Air Intake Visit Reasons: Neuropathy pain Intake Note: Pain today 0/10 Signal Timer Required: No Accompanied by: Self / Same As Patient Allergies No Known Allergies [No Known Allergies*] Allergy (Verified 11/05/24 10:08) HPI HPI Neuropathy pain: Details: Patient is a pleasant 84-year-old female with history of peripheral neuropathy, lumbar spinal stenosis status post back surgery (Dr. Quiroga, 04/2024), nicotine use disorder, varicose veins, carpal tunnel syndrome, history of left carpal tunnel syndrome release, presents today for initial evaluation of chronic neuropathy in both feet. Patient denies any recent trauma, injury, or falls. Patient reports no back pain since surgery for disc problem but reports persistent numbness and shooting pain in her feet that varies in intensity and is worse at night. She also reports bilateral hand pain with paresthesias. 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 Patient has tried different medications through her PCP such as pregabalin and gabapentin, which caused her adverse side effects and made her feel dizzy and drowsy. She is currently taking alpha lipoic acid, Tylenol, duloxetine, NSAIDs and [id number] Nervive without pain relief. Patient is interested to discuss topical 8% capsaicin applications for peripheral neuropathy in both feet. Patient is also exhibits signs of PVD with multiple varicosities and spider veins in her bilateral lower extremities and feet and reports she is scheduled to follow up with Vascular provider next month. Denies any fever or chills, rash, infection, footdrop, weakness, bladder or bowel dysfunction or saddle anesthesia. Location: Bilateral feet, also has numbness and tingling in her hands Duration: Chronic pain > 5 years Characteristics of symptom or complaint: Numbness, tingling, pins and needles,burning, aching, tiring, exhausting Aggravating or associated factors: Walking, sleep Relieving factors: Duloxetine, Tylenol, Ibuprofen, Nervive Treatment: PSSP pain management in the past, back surgery, oral medications [facility] Medical History (Updated 11/05/24 @ 18:21 by ADE Echevarria) Carpal tunnel syndrome Varicose veins of both lower extremities Sensory peripheral neuropathy Nicotine use disorder Current smoker Spinal stenosis Psoriasis Microscopic hematuria No known health problems Surgical History (Updated 11/05/24 @ 18:21 by ADE Echevarria) History of carpal tunnel release History of back surgery (~04/2024) History of vein stripping Family History Father Cardiovascular disease Mother Malignant neoplasm of colon Social History Housing: Apartment Alcohol intake: former Comment: Ocassionally Patient Tobacco Use Status: Former Tobacco user Years Smoked: 20 Review of Systems Const All systems reviewed & are unremarkable except as noted in HPI and below Physical Exam Vital Signs: Last Vital Signs Pulse 81 11/05/24 10:08 BP 108/66 11/05/24 10:08 Pulse Ox 97 11/05/24 10:08 Oxygen Delivery Method Room Air 11/05/24 10:08 BMI result Body Mass Index 21.4 General: Appears afebrile. Alert and oriented. Mood and affect appropriate. Follows and participates in conversation appropriately. Respiratory effort is unlabored. No cough. Able to transition from sit to stand unassisted. Ambulates with bilaterally normal heel strike and toe off. Back/Spine/Pelvis Cervical Spine: cervical ROM normal, No Cervical spine scars present and No Cervical spine tenderness Thoracic/Lumbar Spine: thoracic and lumbar spine normal to inspection, Thoracic/lumbar spine scar(s), Lasegue's sign negative, straight leg raise negative bilaterally, thoraco-lumbar ROM limited, No thoracic spinal tenderness and No lumbar spinal tenderness Extrem Other: There is a decreased sensation over the soles of the feet and great toes. Reports numbness, burning, tingling in both feet, worse at night time. No breaks in the skin. No soft tissue swelling or warmth. +2 pedal pulses bilaterally. Discoloration and chronic venous changes of both LE and feet with multiple varicosities. Normal capillary refill. No calf tenderness. Mild non-pitting left pedal edema. Results Reviewed Results Reviewed: XR LUMBOSACRAL SPINE WITH OBLIQUES 08/24/23 CLINICAL INFORMATION: Anesthesia of skin FINDINGS: Levoscoliosis of the lumbar spine. Advanced degenerative changes in the imaged lower thoracic spine. Bones are diffusely demineralized. Grade 1 retrolisthesis of L1 on L2 with flexion and extension. Advanced multilevel degenerative changes in the lumbar spine most severe at L3-L4, L4-L5 and L5-S1 with loss of disc space height and hypertrophic change. Severe facet arthritis in the mid to lower lumbar spine. IMPRESSION: 1. Grade 1 retrolisthesis of L1 on L2 with flexion and extension. 2. Advanced multilevel degenerative changes in the lumbar spine most severe at L3-L4, L4-L5 and L5-S1. 3. Severe facet arthritis in the mid to lower lumbar spine. 09/07/23 EMG study Lumbar spine MRI review per [facility] 08/24/23: MRI of the lumbar spine completed on 06/08/2023 at [place] shows significant spondylosis, with severe scoliosis, and moderate DDD most prominent at L3-4. Moderate spinal stenosis noted at L3-4, and significant spinal stenosis with central canal narrowing noted at L4-5. Assessment & Plan Assessment & Plan (1) Bilateral leg numbness: Code(s): R20.0 - Anesthesia of skin Category: Medical (2) Sensory peripheral neuropathy: Code(s): G60.8 - Other hereditary and idiopathic neuropathies Category: Medical Plan Discussed risks and benefits of different treatment options including topical 8% capsaicin application and spinal cord stimulation. Patient is not interested for treatments for post laminectomy syndrome at this time or SCS trial as she reports significant back pain relief since surgery in April. Will try to arrange topical 8% capsaicin application for bilateral foot pain as the next step once we have confirmed availability. All questions and concerns have been answered and the patient agreed with the plan. Follow up as needed. Coding Level of Care Code New Pt Level 4 (28555) Complex EM visit Add On G2211 Diagnoses Bilateral leg numbness R20.0 Sensory peripheral neuropathy G60.8
[2024-11-05 10:08] VITALS: BP 108/66; PULSE 81; O2SAT 97; BMI 21.4
== END 2024-11-05 11:10 | disposition home or self-care (01) ==
PROVIDERS: PCP Internal Medicine; Referring Provider Physician Assistant Medical; Visit Provider Nurse Practitioner Family
DX: R20.0 Anesthesia of skin (principal); G60.8 Other hereditary and idiopathic neuropathies
CPT/HCPCS: 99204; G2211

== ENCOUNTER → 2024-11-05 09:58 | Outpatient (BNVA) | payer MEDICARE, SELFPAY | PROVIDERS: PCP Internal Medicine; Referring Provider Physician Assistant Medical; Visit Provider Nurse Practitioner Family | DX: G60.8 Other hereditary and idiopathic neuropathies (principal); M48.061 Spinal stenosis, lumbar region without neurogenic claudication; R20.0 Anesthesia of skin | CPT/HCPCS: 99202 ==

== ENCOUNTER 2024-12-11 09:53 | Outpatient (AMB) | payer MEDICARE, SELFPAY ==
[2024-12-11 09:53] VITALS: BP 140/58; PULSE 99; O2SAT 95; BMI 20.3
--- NOTE | 2024-12-11 09:53 | HO.NEPHOV ---
Vital Signs 12/11/24 09:53 Height 5 ft 2 in Weight 111 lb BMI 20.3 BP 140/58 H Blood Pressure Location Lt brachial Position Sitting Pulse 99 Pulse Source Pulse Oximeter Pulse Oximetry (%) 95 Oxygen Delivery Method Room Air Intake Visit Reasons: Proteinuria/ LVM Reservation Agent Required: No Accompanied by: Self / Same As Patient Allergies No Known Allergies [No Known Allergies*] Allergy (Verified 12/11/24 09:55) Medication List - Last Reconciled 12/11/24 by Gurinder Danielson MD acetaminophen (Tylenol) 325 mg PO QID PRN duloxetine mg PO DAILY estradiol 0.01%(0.1mg/gram) (Estrace) 1 g vaginal 3XW 30 days ibuprofen 200 mg PO Q6H PRN lidocaine HCl-menthol 4-1 % (Nervive Pain Relieving) ea topical HPI Comments Details: Nevaeh is a pleasant 84-year-old woman who has been referred for evaluation proteinuria. She had dipstick positive proteinuria. Recent creatinine was 0.9 mg/dL back in 2022. She had microscopic hematuria. She underwent cystoscopy which was unremarkable. Seen by Vascular [facility] Medical History (Updated 11/05/24 @ 18:21 by ADE Echevarria) Carpal tunnel syndrome Varicose veins of both lower extremities Sensory peripheral neuropathy Nicotine use disorder Current smoker Spinal stenosis Psoriasis Microscopic hematuria No known health problems Surgical History History of carpal tunnel release History of back surgery (~04/2024) History of vein stripping Family History Father Cardiovascular disease Mother Malignant neoplasm of colon Social History Housing: Apartment Alcohol intake: former Comment: Ocassionally Patient Tobacco Use Status: Former Tobacco user Years Smoked: 20 Physical Exam Vital Signs: Last Vital Signs Pulse 99 12/11/24 09:53 BP 140/58 H 12/11/24 09:53 Pulse Ox 95 12/11/24 09:53 Oxygen Delivery Method Room Air 12/11/24 09:53 BMI result Body Mass Index 20.3 Comfortable Neck supple no JVD. Lungs entry equal no rales. Heart S1-S2 heard no gallop or rub. Abdomen soft nontender. Neuro alert awake oriented. No asterixis. Extremities no edema. Results Reviewed Nephrology Results: Sodium 139 mmol/L (135-145) 08/08/24 Potassium 4.4 mmol/L (3.3-5.1) 08/08/24 Chloride 104 mmol/L (96-108) 08/08/24 Carbon Dioxide 26 mmol/L (22-29) 08/08/24 BUN 26 mg/dL (9-16) H 08/08/24 Creatinine 1.12 mg/dL (0.5-1.4) 08/08/24 Calcium 9.7 mg/dL (8.4-10.2) 08/08/24 Urine Creatinine 255.28 mg/dL 08/08/24 Assessment & Plan Assessment & Plan (1) Proteinuria: Code(s): R80.9 - Proteinuria, unspecified Category: Medical Plan Pleasant 84-year-old woman with mild proteinuria by dipstick. She had microscopic hematuria and workup has been negative including cystoscopy. Renal function creatinine was 1.12 and up from 0.8 mg/dL. REcheck today Urien Pro: Cr 290 Repeat Urine PRo: Cr was 0.61 Non nephrotic Will recheck today with serologies meantime encouraged her to stay on low-sodium diet. Have not added any medication at this time Orders: Orders Basic Metabolic Panel Today R80.9 - Proteinuria, unspecified Neutrophil Cytoplasma Ab Today R80.9 - Proteinuria, unspecified Complement C3 Today R80.9 - Proteinuria, unspecified Protein Electrophoresis, Serum Today R80.9 - Proteinuria, unspecified SHON Reflex Titer and Pattern Today R80.9 - Proteinuria, unspecified Creatinine Urine Today R80.9 - Proteinuria, unspecified Total Protein Urine Random Today R80.9 - Proteinuria, unspecified UA and rflx microscopic Today R80.9 - Proteinuria, unspecified Complement C4 Today R80.9 - Proteinuria, unspecified Coding Level of Care Code Est Pt Level 4 (64313) Diagnoses Proteinuria R80.9
== END 2024-12-11 10:10 | disposition home or self-care (01) ==
PROVIDERS: PCP Internal Medicine; Visit Provider Internal Medicine Hypertension Specialist
DX: R80.9 Proteinuria, unspecified (principal)
CPT/HCPCS: 99214

== ENCOUNTER 2024-12-11 10:18 | Outpatient (REF) | payer MEDICARE, SELFPAY ==
--- OUTSIDE RECORDS SUMMARY | 2024-12-11 11:01 | XMS_ITS | Encounter Summary ---
Author Organization [facility] Address [address] [place] [address] Care Team Providers Care Practice Manager Name Role Phone Angelika Giraldo MD Primary Care Provider [phone] Ronald Rendon MD Primary Care Provider Unavail able Encounter Details Date Type Department Care Team Description 09/28/2017 Hospital Medical Records [address] [place] [address] Abstract, Provider Social History Tobacco Use Types Packs/Day Years Used Date Smoking Tobacco: Former Cigarettes 0.5 52 0 11/07/1964 - 09/14/2017 Smokeless Tobacco: Never Comments:4 cigs a day Alcohol Use Standard Drinks/Week Comments Yes 0 (1 standard drink = 0.6 oz pur e alcohol) 2 drinks per mo Sex Assigned at Date Recorded Not on file documented as of this encounter Plan of Treatment Not on file documented as of this encounter Visit Diagnoses Not on filedocumented in this encounter Care Teams Practice Manager Relationship Specialty Start Date End Date Angelika Giraldo MD [address] [place] [address] PCP - General 02/05/1993 05/18/22 Ronald Rendon MD [address] [place] [address] PCP - General Internal Medicine 05/19/22 documented as of this encounter
--- OUTSIDE RECORDS SUMMARY | 2024-12-11 11:01 | XMS_ITS | Encounter Summary ---
Author Organization [facility] Address [address] [place] [address] Care Team Providers Care Russian Language Professor Name Role Phone Angelika Giraldo MD Primary Care Provider Ronald Rendon MD Primary Care Provider Unavail able Encounter Details Date Type Department Care Team Description 10/16/2018 Supervisor Park Workers Report Medical Records [address] [place] [address] Parveen Robertson MD Social History Tobacco Use Types Packs/Day Years Used Date Smoking Tobacco: Former Cigarettes 0.5 52 Q uit: 09/14/2017 Smokeless Tobacco: Never Comments:Started @ age 17; 8 / 2 daily Alcohol Use Standard Drinks/Week Comments Yes 0 (1 standard drink = 0.6 oz pur e alcohol) 2 drinks per mo Sex Assigned at Date Recorded Not on file documented as of this encounter Plan of Treatment Not on file documented as of this encounter Visit Diagnoses Not on filedocumented in this encounter Care Teams Russian Language Professor Relationship Specialty Start Date End Date Angelika Giraldo MD [address] [place] [address] PCP - General 02/05/1993 05/18/22 Ronald Rendon MD [address] [place] [address] PCP - General Internal Medicine 05/19/22 documented as of this encounter
--- OUTSIDE RECORDS SUMMARY | 2024-12-11 11:01 | XMS_ITS | Encounter Summary ---
Author Organization [facility] Address [address] [place] [address] Care Team Providers Care Ham Smoker Name Role Phone Angelika Giraldo MD Primary Care Provider [phone] Ronald Rendon MD Primary Care Provider Unavail able Encounter Details Date Type Department Care Team Description 03/15/2017 Fishing Reel Assembler Report Medical Records [address] [place], [place] [id number] Mumtaz Martin MD Social History Tobacco Use Types Packs/Day Years Used Date Smoking Tobacco: Some Days Cigarettes 0.5 52 Last attempted to quit: 11/18/2011 Smokeless Tobacco: Never Comments:Started @ age 17 Alcohol Use Standard Drinks/Week Comments Yes 0 (1 standard drink = 0.6 oz pur e alcohol) 2 drinks per mo Sex Assigned at Date Recorded Not on file documented as of this encounter Plan of Treatment Not on file documented as of this encounter Visit Diagnoses Not on filedocumented in this encounter Care Teams Ham Smoker Relationship Specialty Start Date End Date Angelika Giraldo MD [address] [place], [place] [phone] PCP - General 02/05/1993 05/18/22 Ronald Rendon MD [address] [place] [id number] PCP - General Internal Medicine 05/19/22 documented as of this encounter
--- OUTSIDE RECORDS SUMMARY | 2024-12-11 11:01 | XMS_ITS | Encounter Summary ---
Author Organization [facility] Address [address] [place] [address] Care Team Providers Care Cdl Truck Driver Name Role Phone Angelika Giraldo MD Primary Care Provider [phone] Ronald Rendon MD Primary Care Provider Unavail able Encounter Details Date Type Department Care Team Description 05/31/2016 Salesperson Toy Trains [employer] Accessories Report Medical Records [address] [place] [address] Anna Wells Social History Tobacco Use Types Packs/Day Years [...] on filedocumented in this encounter Care Teams Cdl Truck Driver Relationship Specialty Start Date End Date Angelika Giraldo MD [address] [place], [place] [phone] PCP - General 02/05/1993 05/18/22 Ronald Rendon MD [address] [place] [address] PCP - General Internal Medicine 05/19/22 documented as of this encounter
--- OUTSIDE RECORDS SUMMARY | 2024-12-11 11:01 | XMS_ITS | Encounter Summary ---
Author Organization [facility] Address [address] [place] [address] Care Team Providers Care Virtualization Engineer Name Role Phone Angelika Giraldo MD Primary Care Provider [phone] Ronald Rendon MD Primary Care Provider Unavail able Encounter Details Date Type Department Care Team Description 09/28/2017 Hospital Medical Records [address] [place] [id number] Swapnil Riggs MD Social History Tobacco Use Types Packs/Day [...] on filedocumented in this encounter Care Teams Virtualization Engineer Relationship Specialty Start Date End Date Angelika Giraldo MD [address] [place], [place] [phone] PCP - General 02/05/1993 05/18/22 Ronald Rendon MD [address] [place] [id number] PCP - General Internal Medicine 05/19/22 documented as of this encounter
--- OUTSIDE RECORDS SUMMARY | 2024-12-11 11:01 | XMS_ITS | Clinical Summary ---
Author Organization [facility] Address [address] [place] [address] Care Team Providers Care Radio Electronics Technician Name Role Phone Ronald Rendon MD Primary Care Provider Unavail able Allergies Active Allergy Reactions Severity Noted Date Comments Nitrofurantoin Rash/Dermatitis 10/22/2018 Medications Medication Sig Dispensed Refills Start Date End Date Status ARTIFICIAL TEAR SOLUTION OP apply 1 Drop to the eye 4 times daily. 0 Active Fluticasone Propionate (FLONASE NA) 2 Sprays by Nasal route daily. 0 Active ibuprofen (ADVIL,MOTRIN) 600 MG tablet Take 1 Tab by mouth every 6 hours as needed for Pain. Take 600 mg by mouth every 6 hours as needed. 60 Tab 0 07/10/2020 Active atorvastatin (LIPITOR) 20 MG tablet Take 1 Tab by mouth daily. 90 Tab 3 07/10/2020 Active Active Problems Problem Noted Date CKD (chronic kidney disease) stage 3, GF R 30-59 ml/min 07/15/2020 Emphysema/COPD 03/31/2018 Overview: Sep 2017: Chest CT scan ([facility]) Hyperlipidemia 09/26/2017 Positive SHON (antinuclear antibody) 08/07 Overview: 1:1600 05/17 Osteopenia 06/30/2011 Overview: 12/24 T score spine -0.8 hip -1.9 FRAX score 13% 10 year fracture risk Family history of malignant neoplasm of gastrointestinal tract 12/26/2006 Overview: Mother with colon cancer, diagnosis at age older than 60. Maternal uncles x 2 with colon cancer, diagnosis at age older than 60. Negative flexible sigmoidoscopy 3.11.96. Negative/incomplete colonoscopy 01.22.02. Negative barium enema x-ray February,. Diminutive hyperplastic sigmoid colon polyp at complete colonoscopy 12.26.06. Negative colonoscopy 01/03/2012, no colon cancer screening needed for 10 years. DIVERTICULOSIS OF COLON 12/26/2006 Overview: Incidental finding at colonoscopy 12/26/2006. Benign neoplasm of colon 12/26/2006 Overview: diminutive sigmoid colon polyp at colonoscopy 12.26.06. VARICOSE VEINS 08/31/2006 Hematuria 08/25/2006 Overview: microscopic, negative evaluation 07/09 IMO update L3-L4 DISC HERNIATION 08/25/2006 Spinal stenosis, lumbar region, without neurogenic claudication 08/25/2006 Carpal tunnel syndrome 08/25/2006 PSORIASIS 08/25/2006 Overview: Onset 1970. Humira 40mg every 4 weeks started 02/15 ONYCHOMYCOSIS 08/25/2006 Immunizations Name Administration Dates Next Due Influenza (> 6 Months) 08/27/2015,08/16/2011, Influenza vaccine high dose age 65 and over 06/2019 Pneumoccoccal(Adult) Polysaccharide PPSV23 08/31 Pneumococcal Conjugate PCV-13 08/27/2015 TD (STATE SUPPLIED FOR ADULTS AND CHILDREN) 09/08,10/02/2007,02/05/1998 Family History Medical History Relation Name Comments [place] Father 57 Cataract Maternal Grandfather Cancer of the Colon Mother angina, CHF, arthritis Cancer of the Colon Other 2 2 uncles Blindness Negative Hx Glaucoma Negative Hx Macular Degeneration Negative Hx Strabismus Negative Hx Relation Name Status Comments Father Maternal Grandfather Mother Other 1 m cousin 70s Alive Other 2 Social History Tobacco Use Types Packs/Day Years Used Date Smoking Tobacco: Former Cigarettes 0.5 52 0 11/07/1964 - 09/14/2017 Smokeless Tobacco: Never Comments:4 cigs a day Alcohol Use Standard Drinks/Week Comments Yes 0 (1 standard drink = 0.6 oz pur e alcohol) 2 drinks per mo Sex Assigned at Date Recorded Not on file Last Filed Vital Signs Vital Sign Reading Time Taken Comments Blood Pressure 128/74 07/10/2020 2:08 PM EDT Pulse 72 07/10/2020 2:08 PM EDT Temperature 36.7 ??C (98 ??F) 07/10/2020 2:08 PM EDT Respiratory Rate 12 07/10/2020 2:08 PM EDT Oxygen Saturation 99% 10/18/2019 3:51 PM EST RA Inhaled Oxygen Concentration - - Weight 56.3 kg (124 lb 3.2 oz) 07/10/2020 2:08 P M EDT Height 157.5 cm (5' 2 ) 07/10/2020 2:08 PM EDT Body Mass Index 22.72 07/10/2020 2:08 PM EDT Plan of Treatment Health Maintenance Due Date Last Done Comments Covid-19 Vaccine (#1) 1940 SHINGLES VACCINE (1 of 2) 1991 BONE DENSITY SCREENING 01/03/2019 01/03/2017, 2010 MAMMOGRAM 05/19/2023 05/19/2022, 05/07, 05/16/2018, Additional history exists INFLUENZA (#1) 2024 09/14/2019, 08/08, 08/16/2011, Additional history exists BMI CHECK/ADVISE 11/07/2024 05/05/2019 CHOLESTEROL SCREENING 07/10/2025 07/10/2020 , 10/11/2018, 04/06/2018, Additional history exists DTAP/TDAP/TD (3 - Td or Tdap) 09/26/2027, 12/01/2016 (Refused), 10/02/2007, Additional history exists PNEUMOCOCCAL VACCINE Completed 09/15/2017, 08/27/20 15, 08/31/2006 Guarantor Name Account Type Relation to Patient Date of Phone Billing Address Nevaeh Brown Personal/Family Self [address] [place] [id number] Nevaeh Brown Vision Self 1940 [address] [place] [id number] Nevaeh Brown Individual Self 1940 [address] [place] [id number] Care Teams Radio Electronics Technician Relationship Specialty Start Date End Date Ronald Rendon MD PCP - General Internal Medicine 05/19/22
--- OUTSIDE RECORDS SUMMARY | 2024-12-11 11:01 | XMS_ITS | Data Portability ---
Author Organization [place] - [facility], Allergy Address [address] [address] Assessment Encounter Date Assessment Date Assessment LastModified by Organization Details LastModified Time 08/16/2024 08/16/2024 CL & CK - both aids working fine.. May be getting new IPhone - instructions given for relinking aids to phone. annual appt made [email or web address] Not available 08/16/2024 10:24:54 Plan of Treatment Reminders Order Date Submit Date Provider Last Modified By Organization Details Last Modified Time Details Appointments LOAIZA Initial Fitting 2024 10:00A Marii CHIU, JOSE Not available Not available Not available Lab None recorded . Referral None recorded . Procedures None recorded . Surgeries None recorded . Imaging None recorded . Medication Orders None recorded . Patient TargetsNo targets recorded. Patient InstructionsNo instructions recorded. Reason for Referral None Reported. Problems Name Problem SNOMED Code Status Onset Date Resolution Date Notes Provider Name and Address Organization Details Recorded Time Mixed conductiv e and sensorine ural hearing loss of right ear 46386833420 105 Active 2016 Mixed conductiv e and sensorine ural hearing loss, unilatera l, right ear with restricte d hearing on the contralat eral side; Note: Date Diagnosed : 03/15/2017 10:55 AM (H90.A31) Not Available [facility] 4 02:15:04 Disorder of right Eustachia n tube 07111354136 53156 Active 2020 Other specified disorders of Eustachia n tube, right ear; Note: Date Diagnosed : 02/23/2021 10:24 AM (H69.81) Not Available [facility] 4 02:15:38 Sensorine ural hearing loss in left ear 56297291757 109 Active 2016 Sensorine ural hearing loss, unilatera l, left ear, with restricte d hearing on the contralat eral side; Note: Date Diagnosed : 03/15/2017 10:55 AM (H90.A22) Not Available [facility] 4 02:14:56 Impacted cerumen of bilateral ears 53985503784 06862 Active 2016 Impacted cerumen, bilateral ; Note: Date Diagnosed : 03/15/2017 10:16 AM (H61.23) Not Available [facility] 4 02:12:59 Impacted cerumen in right ear 73288804241 12992 Active 2020 Impacted cerumen, right ear; Note: Date Diagnosed : 02/23/2021 10:24 AM (H61.21) Not Available [facility] 4 02:15:18 Mixed conductiv e and sensorine ural hearing loss, bilateral 254933496 Active 2023 Mixed conductiv e and sensorine ural hearing loss, bilateral ; Note: Date Diagnosed : 12/02/2023 3:49 PM (H90.6) Not Available [facility] 4 02:14:56 Sensorine ural hearing loss of bilateral ears 622661656 Active 2023 YESSICA CHIU, [facility] [address], [address] , [facility] - [facility] 4 10:17:08 Problem Notes None recorded. Medical Equipment None Reported. Medications Name Sig Start Date Stop Date Status Note LastModified by Organization Details LastModified Time fluticason e propionate 50 mcg/actuat ion nasal spray,susp ension 2 puff into both nostrils 2016 active Medicatio n ID: [id number] Du ration Value: 30 Prescrib ed By Name: Mumtaz Martin MD Brand Name: fluticaso ne Send Method: E-Prescri bed Subs Allowed: subs OK Medica tionGener icName: fluticaso ne Not Available Not Available Not Available Vitals None Recorded Social History None recorded. Functional Status None recorded. Mental Status None recorded. Family History Nothing Reported. Medical History No medical history recorded. Gynecological HistoryNo gynecological history recorded. Obstetrics History GPAL:G 0 P 0 0 0 0 Past Encounters Encounter ID Performer Location Encounter Start Date Encounter Closed Date Diagnosis/Indication Diagnosis SNOMED-CT Code Diagnosis ICD10 Code Diagnosis Note [id number] JOSE PORTER [place] 100 [facility], [place] [address] [place] [address] 08/16/2024 10:01:04 08/20/2024 07:15:39 Sensorineural hearing loss of bilateral ears [id number] H90.3 Health Concerns Section Related Observation LastModified by Organization Detai ls LastModified Time None Recorded Concern Status LastModified by Organization Details LastModified Time None Recorded Advance Directives Directive None Recorded Payers None recorded. Notes Date Note Type Note Provider Name and Address Organization Details Recorded Time 08/16/2024 text/html Patient has [employer] benefit thru [facility]. She prefers staying with us. She as a known bilateral SNHL She is currently wearing ImageVision 330 Smart JOSE FRANCISCO hearing aids dispensed 02/09/2024 JOSE PORTER 100 [facility],[place] [address], [place], [address], [facility] - [facility] 08/16/2024 10:25:17 OBGyn Episode No OBEpisode recorded.
--- OUTSIDE RECORDS SUMMARY | 2024-12-11 11:01 | XMS_ITS | Encounter Summary ---
Author Organization [facility] Address [address] [place] [address] Care Team Providers Care Mathematics Faculty Member Name Role Phone Angelika Giraldo MD Primary Care Provider [phone] Ronald Rendon MD Primary Care Provider Unavail able Encounter Details Date Type Department Care Team Description 09/16/2017 Hospital Medical Records [address] [place] [address] Abstract, Provider Social History Tobacco Use Types [...] on filedocumented in this encounter Care Teams Mathematics Faculty Member Relationship Specialty Start Date End Date Angelika Giraldo MD [address] [place] [address] PCP - General 02/05/1993 05/18/22 Ronald Rendon MD [address] [place] [address] PCP - General Internal Medicine 05/19/22 documented as of this encounter
--- OUTSIDE RECORDS SUMMARY | 2024-12-11 11:01 | XMS_ITS | Encounter Summary ---
Author Organization [facility] Address [address] [place] [address] Care Team Providers Care Materials Tech Name Role Phone Angelika Giraldo MD Primary Care Provider [phone] Ronald Rendon MD Primary Care Provider Unavail able Reason for Visit * Reason Onset Date Comments Annual Wellness Outreach 09/18/2021 Encounter Details Date Type Department Care Team Description 09/18/2021 Telephone Adult Medicine [address] [phone] Pardeep Black DO Annual Wellness Outreach Social History Tobacco Use Types Packs/Day Years Used Date Smoking Tobacco: Former Cigarettes 0.5 52 0 [birth year]/07/1964 - 09/14/2017 Smokeless Tobacco: Never Comments:4 cigs a day Alcohol Use Standard Drinks/Week Comments Yes 0 (1 standard drink = 0.6 oz pur e alcohol) 2 drinks per mo Sex Assigned at Date Recorded Not on file documented as of this encounter Miscellaneous Notes * Telephone Encounter - Jovana Montenegro - 09/18/2021 3:38 PM EST Ms. Brown was contacted by telephone. First attempt utr lvm documented in this encounter Plan of Treatment Not on file documented as of this encounter Visit Diagnoses Not on filedocumented in this encounter Care Teams Materials Tech Relationship Specialty Start Date End Date Angelika Giraldo MD [address] [place] [address] [phone] PCP - General 02/05/1993 05/18/22 Ronald Rendon MD [address] [place] [address] PCP - General Internal Medicine 05/19/22 documented as of this encounter
--- OUTSIDE RECORDS SUMMARY | 2024-12-11 11:01 | XMS_ITS | Encounter Summary ---
Author Organization [facility] Address [address] [place] [address] Care Team Providers Care [employer] Name Role Phone Angelika Giraldo MD Primary Care Provider [phone] Ronald Rendon MD Primary Care Provider Unavail able Encounter Details Date Type Department Care Team Description 09/15/2018 Fiction And Nonfiction Author Report Medical Records [address] [place] [id number] Kristen Woods Social History Tobacco Use Types Packs/Day Years Used Date Smoking Tobacco: Former Cigarettes 0.5 52 Q uit: 09/14/2017 Smokeless Tobacco: Never Comments:Started @ age 17; 8 /9 2 daily Alcohol Use Standard Drinks/Week Comments Yes 0 (1 standard drink = 0.6 oz pur e alcohol) 2 drinks per mo Sex Assigned at Date Recorded Not on file documented as of this encounter Plan of Treatment Not on file documented as of this encounter Visit Diagnoses Not on filedocumented in this encounter Care Teams [employer] Relationship Specialty Start Date End Date Angelika Giraldo MD [address] [place] [address] [phone] PCP - General 02/05/1993 05/18/22 Ronald Rendon MD [address] [place] [address] PCP - General Internal Medicine 05/19/22 documented as of this encounter
--- OUTSIDE RECORDS SUMMARY | 2024-12-11 11:01 | XMS_ITS | Encounter Summary ---
Author Organization [facility] Address [address] [place] [address] Care Team Providers Care Patient Care Coordinator Name Role Phone Angelika Giraldo MD Primary Care Provider [phone] Ronald Rendon MD Primary Care Provider Unavail able Reason for Visit * Reason Onset Date Comments Provider Call Back 05/11/2017 Encounter Details Date Type Department Care Team Description 05/11/2017 Telephone Physiatry - [facility] [address] [place], [place] [phone] Emilee Mondragon MD [address] [place] [address] [place] [address] Provider Call Back Social History Tobacco Use Types Packs/Day Years [...] encounter Miscellaneous Notes * Telephone Encounter - Ariana Meyer M.A. - 05/11/2017 2:10 PM EDT Left A message reminding patient of Appt on 06/15. Also relayed Dr Rodriguez message of continuing the Home Exercises to help with discomfort * Telephone Encounter - Emilee Mondragon MD - 05/11/2017 2:09 PM EDT Continue with plan of home exercises. I think she already has a scheduled fup to reevaluate and to see if we can reappeal the MRI. thanks * Telephone Encounter - Ariana Meyer M.A. - 05/11/2017 1:57 PM EDT Please review and advise. Patient still has discomfort. Last visit on 05/06/17 Note from that visit below ASSESSMENT/PLAN: 1. She has some tenderness over right GT. We can try a GT injection today and hope that would give her some relief. She will call our office next week for updates. ?? 2. I still think we should rule out a right L3-4 disc herniation. Insurance wants a 6 week conservative management. Patient cannot afford the copay for PT but is very willing to do physician guided home exercises. I gave her a list to do at home, will illustrations. Will reevaluate in 6 weeks. ? PROCEDURE PERFORMED: right Trochanteric Bursa injection ?? PROCEDURE: Procedure explained to patient. Consent obtained. Patient lies on unaffected side with lower leg flexed and upper leg extended. Tender area over the right greater trochanter is identified and marked. Area is cleansed with betadine solution. Using a 27 gauge needle, 3 ml of 2% lidocaine is injected, with the needle perpendicular to center of tender area. Then, using a spinal needle, 40mg Kenalog is injected perpendicularly at center of tender area and slightly touching bone of greatertrochanter. The patient tolerated the procedure well without complications. Assessment and plan discussed with patient. All questions were answered thoroughly. Follow up 6 weeks. ?? Emilee Mondragon MD ?? * Telephone Encounter - Cordell Hallman - 05/11/2017 1:31 PM EDT Patient called saying, she was told to call to inform Dr Helm how is she after an injection. Patient saying injection did help a little, but she still has a uncomfortable filling in her back and thigh. documented in this encounter Plan of Treatment Not on file documented as of this encounter Visit Diagnoses Not on filedocumented in this encounter Care Teams Patient Care Coordinator Relationship Specialty Start Date End Date Angelika Giraldo MD [address] [place] [id number] PCP - General 02/05/1993 05/18/22 Ronald Rendon MD [address] [place] [id number] PCP - General Internal Medicine 05/19/22 documented as of this encounter
--- OUTSIDE RECORDS SUMMARY | 2024-12-11 11:01 | XMS_ITS | Encounter Summary ---
Author Organization [facility] Address [address] [place] [address] Care Team Providers Care Fruit Packer Name Role Phone Angelika Giraldo MD Primary Care Provider [phone] Ronald Rendon MD Primary Care Provider Unavail able Encounter Details Date Type Department Care Team Description 05/29/2019 Telephone Adult [address] [phone] Qian Estrada PA-C Social History Tobacco Use Types Packs/Day Years [...] on filedocumented in this encounter Care Teams Fruit Packer Relationship Specialty Start Date End Date Angelika Giraldo MD [address] [place] [address] [phone] PCP - General 02/05/1993 05/18/22 Ronald Rendon MD [address] [place] [id number] PCP - General Internal Medicine 05/19/22 documented as of this encounter
[2024-12-11 11:58] LABS: Appearance Urine Cloudy; Color Urine Yellow; Glucose Urine UA Negative (Negative); Leukocyte Esterase Urine Moderate (2+) (Negative); Nitrite Urine Negative (Negative); Specific Gravity - Urine 1.025 (1.005-1.025); UMIC TRIGGER UA YES; Urine Blood Negative (Negative); Urine Ketones Trace mg/dL (Negative); Urine Protein 300 (3+) mg/dL (Neg-Trace)
[2024-12-11 12:12] LABS: Bacteria Urine None Seen (None Seen)
[2024-12-11 12:25] LABS: Anion Gap 15 (12-20); Blood Urea Nitrogen 20 mg/dL (9-16); Calcium 9.9 mg/dL (8.4-10.2); Carbon Dioxide 24 mmol/L (22-29); Chloride 104 mmol/L (96-108); Estimated Glomerular Filt Rate 52; Glucose Random 107 mg/dL (60-115); Potassium 4.4 mmol/L (3.3-5.1); Sodium 139 mmol/L (135-145)
[2024-12-11 12:31] LABS: Creatinine Urine 188.09 mg/dL; Total Protein Urine Random 160 mg/dL (<12)
[2024-12-12 13:34] LABS: Complement C3 107 mg/dL
[2024-12-13 10:58] LABS: Prot Elec - Albumin 4.3 g/dL (3.8-4.8); Prot Elec - Alpha1 0.3 g/dL (0.2-0.3); Prot Elec - Alpha2 0.8 g/dL (0.5-0.9); Prot Elec - Beta 1 0.4 g/dL (0.4-0.6); Prot Elec - Beta 2 0.3 g/dL (0.2-0.5); Prot Elec - Total Protein 7.1 g/dL (6.1-8.1)
[2024-12-13 14:09] LABS: Anti Nuclear Antibody Screen NEGATIVE (NEGATIVE)
[2024-12-14 15:49] LABS: Neutrophil Cyto Ab Screen NEGATIVE (NEGATIVE)
== END 2024-12-11 10:19 | disposition home or self-care (01) ==
LOC: HO.10HDL 10:18
PROVIDERS: Visit Provider Internal Medicine Hypertension Specialist
DX: R80.9 Proteinuria, unspecified (principal)
CPT/HCPCS: 36415; 80048; 81001; 82570; 84156; 84165; 86036; 86038; 86160

== ENCOUNTER 2025-01-28 10:47 | Outpatient (REF) | payer MEDICARE, SELFPAY ==
[2025-01-28 17:01] LABS: Urine Cytology See Pathology rpt
== END 2025-01-28 10:48 | disposition home or self-care (01) ==
LOC: HO.LNP 10:47
PROVIDERS: PCP Internal Medicine; Visit Provider Nurse Practitioner Family
DX: N36.2 Urethral caruncle (principal); R31.29 Other microscopic hematuria; F17.200 Nicotine dependence, unspecified, uncomplicated; R89.6 Abnormal cytological findings in specimens from other organs, systems and tissues
CPT/HCPCS: 81003; 88112; 99212

== ENCOUNTER 2025-01-28 10:47 | Outpatient (AMB) | payer MEDICARE, SELFPAY ==
--- NOTE | 2025-01-28 10:49 | A.OFFVIS_ITS ---
Intake Visit Reasons: 6m follow up Intake Note: Patient presents for follow up microscopic hematuria Urology Medications: Estrace Cream Blood Thinner:none Director Dietetics Department Required: No Accompanied by: Self / Same As Patient Allergies No Known Allergies [No Known Allergies*] Allergy (Verified 01/28/25 11:24) Medication List - Last Reconciled 01/28/25 by ADE Sanchez-KALYANI acetaminophen (Tylenol) 325 mg PO QID PRN duloxetine mg PO DAILY estradiol 0.01%(0.1mg/gram) (Estrace) 1 g vaginal 3XW 30 days ibuprofen 200 mg PO Q6H PRN lidocaine HCl-menthol 4-1 % (Nervive Pain Relieving) ea topical HPI Comments Details: Nevaeh is a pleasant 84-year-old female patient of Dr. Rendon. She presents to the office today for a follow up of her microscopic hematuria in the setting of nicotine dependence. In discussion with the patient today she reports to be doing and feeling well. She denies having had any bothersome urinary issues or concerns since her last office visit here approximately 6 months ago. She does report episodes of stress incontinence however feels she is self managing. She reports having followed up with Nephrology for ongoing proteinuria. Previous workup has included CT 01/27 noted no calculi. There are 5 mm and less cysts in the upper pole of the right kidney cortex. No additional cysts seen. There is no enhancing renal mass. The bladder is partially distend ed. There are no radiopaque calculi or bladder wall thickening. Patient underwent an in office cystoscopy 01/[address] Goddard that noted NAD however urethral caruncle noted. She does continue with nicotine dependence and reports to be smoking approximately 1 pack of cigarettes every 4-7 days. When asked she denies flank pain, hematuria, urinary urgency, urinary frequency, fever, and or chills. In office urinalysis results reviewed with the patient today. 1+ microscopic hematuria noted and proteinuria. When asked she reports compliance with Estrace cream as prescribed. We discussed further workup to include repeat imaging as well as in office cystoscopy versus surveillance monitoring. Risks and benefits of these interventions were discussed. She otherwise offers no other issues or concerns at this time. Urine cytology: 12/30 Negative for high-grade urothelial carcinoma, 07/31 Rare atypical urothelial cells. 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 Nicotine use disorder Current smoker Spinal stenosis Psoriasis Microscopic hematuria No known health problems Surgical History History of carpal tunnel release History of back surgery (~04/2024) History of vein stripping Family History Father Cardiovascular disease Mother Malignant neoplasm of colon Social History Housing: Apartment Alcohol intake: former Comment: Ocassionally Patient Tobacco Use Status: Former Tobacco user Years Smoked: 20 Review of Systems Const All systems reviewed & are unremarkable except as noted in HPI and below Reports as per HPI Eyes Reports no additional complaints ENT Reports no additional complaints Card Reports no additional complaints Resp Reports no additional complaints GI Reports no additional complaints Reports as per HPI Musc Reports no additional complaints Neuro Reports as per HPI Psych Reports no additional complaints Endo Reports no additional complaints Mayur/Lymph Reports no additional complaints Aller/Immun Reports no additional complaints Physical Exam Const General: cooperative, healthy appearing, comfortable, no acute distress, well developed, alert and awake Nutritional Appearance: thin Orientation/consciousness: patient oriented x3 Limitations: no limitations HEENT Head: Yes normal to inspection, Yes normocephalic and Yes atraumatic Eyes General: appearance normal, both eyes and all related structures Neck Neck: Yes normal visual inspection and Yes trachea midline Chest Chest palpation & inspection: normal inspection of the chest Resp Effort & Inspection: normal respiratory effort and able to speak in complete sentences Cardio Rate: regular rate GI Inspection: Yes normal to inspection General: Yes no CVA tenderness Back/Spine/Pelvis Back: no CVA tenderness Skin General skin exam: no rashes or lesions noted Neuro General: patient oriented x3 Psych Appearance: grossly normal and well kempt Mental Status: mental status grossly normal Speech and movement: Normal speech and movement present and Clear speech present Affect: normal affect Attitude: cooperative Thought process: Normal thought process present Thought content: Normal thought content present Insight: Fair insight present (Psych) Judgement: Fair judgement present (Psych) Results AMB Urinalysis, Automated UA Leukoctes 70 Paresh/uL Last Edit by [employer] on 01/28/25 11:07 UA Nitrite Last Edit by [employer] on 01/28/25 11:07 UA Urobilinogen 0.2 mg/dL Last Edit by [employer] on 01/28/25 11:07 UA Protein 100 mg/dL Last Edit by [employer] on 01/28/25 11:07 UA pH 6.0 Last Edit by [employer] on 01/28/25 11:07 UA Blood 25 Henri/uL Last Edit by [employer] on 01/28/25 11:[address] 1.025 Last Edit by [employer] on 01/28/25 11:07 UA Ketone Negative Last Edit by [employer] on 01/28/25 11:07 UA Bilirubin 0 mg/dL Last Edit by [employer] on 01/28/25 11:07 UA Glucose 0 mg/dL Last Edit by [employer] on 01/28/25 11:07 Results Reviewed Results Reviewed: Laboratory Last Values Urine pH (Auto) 6.0 01/28/25 10:[address] (Auto) 1.025 01/28/25 10:50 Urine Protein (Auto) 100 mg/dL 01/28/25 10:50 Glucose (UA)(Auto) 0 mg/dL 01/28/25 10:50 Urine Ketones (Auto) Negative 01/28/25 10:50 Urine Blood (Auto) 25 Henri/uL 01/28/25 10:50 Urine Bilirubin (Auto) 0 mg/dL 01/28/25 10:50 Urine Urobilinogen (Auto) 0.2 mg/dL 01/28/25 10:50 Leukocyte Esterase (Auto) 70 Paresh/uL 01/28/25 10:50 Assessment & Plan Assessment & Plan (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 Patient currently denies any bothersome urinary issues or concerns. Continue to follow-up with nephrology regarding proteinuria. We discussed potential repeat and imaging as well as in office cystoscopy given most recent urine cytology results. Discussed at length potential causes for microscopic hematuria. Discussed, educated, and stressed the importance of limiting/quitting nicotine dependence for overall health and well-being. Continue Estrace cream as discussed and prescribed. Patient currently denies any bothersome urinary issues or concerns. Discussed, educated, and stressed the importance of drinking water daily. Information provided regarding in office urodynamics for stress incontinence. Patient would like to continue with surveillance monitoring at this time. Follow-up in 6 months; or sooner with any issues, concerns, and or questions. Orders: Orders AMB Urinalysis Automated Today Z13.9 - Encounter for screening, unspecified Patient Instructions: The patient had an opportunity to ask questions regarding the treatment plan. All questions were answered. Physical exam, labs, and imaging were discussed and reviewed in detail. As well as risks, benefits, and discussion of treatment choices. No major barriers to understanding were identified. The patient expressed understanding and agreement with the above treatment plan. The patient was made aware they should contact our office by phone for worsening of their current condition, the appearance of new symptoms, or with any questions or concerns. Compliance is encouraged with any medications and follow up testing that is ordered. It is a privilege to be allowed the opportunity to participate in? your urological care.? Again, if you have any questions or concerns If you have any questions or concerns please do not hesitate to contact me. The office is [phone]. This note is constructed using voice recognition software. While every effort has been made to ensure accuracy hollow core door frame assembler errors may have been included. 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
== END 2025-01-28 11:25 | disposition home or self-care (01) ==
LOC: HO.HUSH 10:48
PROVIDERS: PCP Internal Medicine; Visit Provider Nurse Practitioner Family
DX: N36.2 Urethral caruncle (principal); F17.200 Nicotine dependence, unspecified, uncomplicated; R31.29 Other microscopic hematuria; R89.6 Abnormal cytological findings in specimens from other organs, systems and tissues; Z13.9 Encounter for screening, unspecified
CPT/HCPCS: 99213; G2211

== ENCOUNTER 2025-05-06 10:53 | Outpatient (AMB) | payer MEDICARE, SELFPAY ==
--- NOTE | 2025-05-06 10:58 | HO.NEPHOV ---
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 She had dipstick positive proteinuria. Recent creatinine was 0.9 mg/dL back in 2022. She had microscopic hematuria. She underwent cystoscopy which was unremarkable. Seen by Vascular 05/06/25 The patient is an 85-year-old female presenting with a routine follow-up for protienuria. In December, laboratory tests for kidney function were conducted and returned normalserologies The patient reports experiencing insomnia, which occasionally disrupts her sleep at night. She has not been prescribed any new medications for this condition. The patient has a history of varicose veins, which have been associated with swelling in the past. She has consulted a vascular surgeon, who did not recommend any new interventions. The patient also reports neuropathy, characterized by numbness, but no new treatments have been suggested by her healthcare providers. 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 Nicotine use disorder Current smoker Spinal stenosis Psoriasis Microscopic hematuria No known health problems Surgical History History of carpal tunnel release History of back surgery (~04/2024) History of vein stripping Family History Father Cardiovascular disease Mother Malignant neoplasm of colon Social History Housing: Apartment Alcohol intake: former Comment: Ocassionally Patient Tobacco Use Status: Former Tobacco user Years Smoked: 20 Physical Exam Vital Signs: Last Vital Signs Pulse 86 05/06/25 10:59 BP 120/60 05/06/25 10:59 Pulse Ox 97 05/06/25 10:59 Oxygen Delivery Method Room Air 05/06/25 10:59 BMI result Body Mass Index 19.9 Comfortable Neck supple no JVD. Lungs entry equal no rales. Heart S1-S2 heard no gallop or rub. Abdomen soft nontender. Neuro alert awake oriented. No asterixis. Extremities no edema. Results Reviewed Nephrology Results: Sodium, (135-145) 139 mmol/L 12/11/24 Potassium, (3.3-5.1) 4.4 mmol/L 12/11/24 Chloride, (96-108) 104 mmol/L 12/11/24 Carbon Dioxide, (22-29) 24 mmol/L 12/11/24 BUN, (9-16) 20 mg/dL H 12/11/24 Creatinine, (0.5-1.4) 1.02 mg/dL 12/11/24 Calcium, (8.4-10.2) 9.9 mg/dL 12/11/24 Urine Protein, (Neg-Trace) 300 (3+) mg/dL H 12/11/24 Urine Creatinine 188.09 mg/dL 12/11/24 Assessment & Plan Assessment & Plan (1) Proteinuria: Code(s): R80.9 - Proteinuria, unspecified Category: Medical Plan Pleasant 85-year-old woman with mild proteinuria by dipstick. She had microscopic hematuria and workup has been negative including cystoscopy. Renal function creatinine was 1.12 and up from 0.8 mg/dL. Urine Pro: Cr 290 Repeat Urine PRo: Cr was 0.61 Non nephrotic ALL serologies are negative Encouraged her to stay on low-sodium diet. BP is relatively low and have not added any medication or ACEi at this time Orders: Orders Basic Metabolic Panel 1 Year R80.9 - Proteinuria, unspecified UA and rflx microscopic 1 Year R80.9 - Proteinuria, unspecified Creatinine Urine 1 Year R80.9 - Proteinuria, unspecified Total Protein Urine Random 1 Year R80.9 - Proteinuria, unspecified Coding Level of Care Code Est Pt Level 4 (07953) Diagnoses Proteinuria R80.9
[2025-05-06 10:59] VITALS: BP 120/60; PULSE 86; O2SAT 97; BMI 19.9
== END 2025-05-06 11:10 | disposition home or self-care (01) ==
LOC: HO.HKA 10:54
PROVIDERS: PCP Internal Medicine; Visit Provider Internal Medicine Hypertension Specialist
DX: R80.9 Proteinuria, unspecified (principal)
CPT/HCPCS: 99214

== ENCOUNTER → 2025-05-06 10:53 | Outpatient (BNVA) | payer MEDICARE, SELFPAY | PROVIDERS: PCP Internal Medicine; Visit Provider Internal Medicine Hypertension Specialist | DX: R31.29 Other microscopic hematuria (principal); R80.9 Proteinuria, unspecified; G47.00 Insomnia, unspecified; I83.90 Asymptomatic varicose veins of unspecified lower extremity | CPT/HCPCS: 99212 ==